=== PATIENT | male | born 1965 ===

== ENCOUNTER 2018-03-08 16:01 | Inpatient (IN) | payer SELFPAY ==
[2018-03-08] MEDS ORDERED: Sodium Chloride 0.9% 1,000 ML IV STA ×2 (16:32→18:10)
[2018-03-08] MEDS ORDERED: Insulin Regular 100 units/ml SC STA (16:33)
--- NOTE | 2018-03-08 16:39 | ED PDOC ---
HPI: Abdomen Time Seen by Provider: 03/08/18 16:26 Chief Complaint (Nursing): Abdominal Pain Chief Complaint (Provider): abdominal pain History Per: Patient History/Exam Limitations: no limitations Onset/Duration Of Symptoms: Days (x3) Location Of Pain/Discomfort: LLQ Associated Symptoms: Vomiting. denies: Fever, Chills, Diarrhea, Urinary Symptoms Additional Complaint(s): Travis Loya is a 53 year old male, with a past medical history of diabetes, RBKA and amputation of left toes, who presents to the emergency department complaining of LLQ pain onset for x3 days associated with x1 episode of vomiting. Patient is noncompliant with diabetic medications. He denies any fever, chills or urinary symptoms. No further medical complaints. PMD: None provided. Past Medical History Reviewed: Historical Data, Nursing Documentation, Vital Signs Vital Signs: Last Vital Signs Temp 98.6 F 03/08/18 16:06 Pulse 98 H 03/08/18 16:06 Resp 18 03/08/18 16:06 BP 125/92 H 03/08/18 16:06 Pulse Ox 97 03/08/18 16:06 - Medical History PMH: Asthma, Diabetes - Surgical History Other surgeries: RBKA, left toes amputation - Family History Family History: States: Unknown Family Hx - Social History Current smoker - smoking cessation education provided: Yes (Heavy smoker >10 cigarettes daily) Alcohol: Social - Allergies Allergies/Adverse Reactions: Allergies Allergy/AdvReac Type Severity Reaction Status Date / Time FISH Allergy RASH Verified 03/08/18 16:06 hazelnut Allergy RASH Verified 03/08/18 16:06 Review of Systems ROS Statement: Except As Marked, All Systems Reviewed And Found Negative Constitutional: Negative for: Fever, Chills Gastrointestinal: Positive for: Vomiting (x1), Abdominal Pain (LLQ). Negative for: Diarrhea Genitourinary Male: Negative for: Dysuria, Frequency, Hematuria Physical Exam - Reviewed Nursing Documentation Reviewed: Yes Vital Signs Reviewed: Yes - Physical Exam Appears: Positive for: No Acute Distress Head Exam: Positive for: ATRAUMATIC, NORMOCEPHALIC Skin: Positive for: Normal Color, Warm, Dry Eye Exam: Positive for: Normal appearance, EOMI, PERRL Neck: Positive for: Painless ROM, Supple Cardiovascular/Chest: Positive for: Regular Rate, Rhythm. Negative for: Murmur Respiratory: Positive for: Normal Breath Sounds. Negative for: Respiratory Distress Gastrointestinal/Abdominal: Positive for: Soft, Tenderness (mild LLQ). Negative for: Guarding, Rebound Back: Positive for: Normal Inspection. Negative for: L CVA Tenderness, R CVA Tenderness Extremity: Positive for: Other (RBKA and amputation of left toe) Neurologic/Psych: Positive for: Alert, Oriented - Laboratory Results Result Diagrams: 03/08/18 16:51 03/08/18 16:51 - ECG O2 Sat by Pulse Oximetry: 97 (RA) Pulse Ox Interpretation: Normal - Progress Re-evaluation Time: 18:14 Condition: Re-examined - Critical Care Total Time (In Min): 30 Documented Critical Care: Time excludes all time spent performint seperately billable procedures Medical Decision Making Medical Decision Making: Time: 16:26 Initial Plan: --Abd & Pelvis IV Contrast --CMP --Urine dipstick --CBC w/ differential --HumuLIN R 6 units --Sodium Chloride 1,000 ml IV 200 mls/hr --Reevaluation Calculated osmolarity 312 Will tx with fluids and Insulin drip and admit to ICU Scribe Attestation: Documented by Damien Rodriguez, acting as a scribe for Tex Mack MD. Provider Scribe Attestation: All medical record entries made by the Scribe were at my direction and personally dictated by me. I have reviewed the chart and agree that the record accurately reflects my personal performance of the history, physical exam, medical decision making, and the department course for this patient. I have also personally directed, reviewed, and agree with the discharge instructions and disposition. Disposition - Clinical Impression Clinical Impression: Hyperosmolar non-ketotic state in patient with type 2 diabetes mellitus - Patient ED Disposition Is Patient to be Admitted: Yes - Disposition Disposition Time: 18:15 Condition: GUARDED Forms: [employer] (Slovenian) - Pt Status Changed To: Hospital Disposition Of: Inpatient - Admit Certification Admit to Inpatient:: After my assessment, the patient will require hospitalization for at least two midnights. This is because of the severity of symptoms shown, intensity of services needed, and/or the medical risk in this patient being treated as an outpatient. - POA Present On Arrival: None
[2018-03-08] MEDS ORDERED: Insulin Regular 100 units/ml ONE (16:50)
[2018-03-08 16:56] LABS: BASO % 0.5 % (0.0-2.0); EOS # 0.1 K/uL (0.0-0.7); EOS % 0.8 % (0.0-4.0); HEMOGLOBIN 13.3 g/dL (12.0-18.0); LYMPH # 1.5 K/uL (1.0-4.3); LYMPH % 21.9 % (20.0-40.0); MEAN CELL VOLUME 89.9 fl (80.0-94.0); MEAN CORPUSCULAR HEMOGLOBIN 29.5 pg (27.0-31.0); MEAN CORPUSCULAR HGB CONC 32.9 g/dL (33.0-37.0); MEAN PLATELET VOLUME 8.3 fl (7.2-11.7); MONO # 0.5 K/uL (0.0-0.8); MONO % 7.3 % (0.0-10.0); NEUT # 4.6 K/uL (1.8-7.0); NEUT % 69.5 % (50.0-75.0); RBC 4.5 Mil/uL (4.40-5.90); RED CELL DISTRIBUTION WIDTH 12.7 % (11.5-14.5); WHITE BLOOD COUNT 6.7 K/uL (4.8-10.8)
[2018-03-08 17:14] LABS: ALB/GLOB RATIO 1.1 (1.0-2.1); ALBUMIN 4.2 g/dL (3.5-5.0); ALT/SGPT 45 U/L (21-72); AST/SGOT 42 U/L (17-59); BLOOD UREA NITROGEN 23 mg/dl (9-20); CALCIUM 9.2 mg/dL (8.4-10.2); GFR NON-AFRICAN AMERICAN > 60
[2018-03-08] MEDS ORDERED: Glucagon Recombinant 1 mg Inj IM PRN (18:09)
[2018-03-08] MEDS ORDERED: Dextrose 50% SYRINGE Inj (50 ml) IV PRN (18:09)
--- NOTE | 2018-03-08 18:34 | CT ---
Date of service: 03/08/2018 PROCEDURE: CT Abdomen and Pelvis without intravenous contrast HISTORY: Rule out kidney stone. COMPARISON: None. TECHNIQUE: Technique. Contrast dose: Radiation dose: Total exam DLP = mGy-cm. This CT exam was performed using one or more of the following dose reduction techniques: Automated exposure control, adjustment of the mA and/or kV according to patient size, and/or use of iterative reconstruction technique. FINDINGS: LOWER THORAX: Heart size is within range of normal. No significant pericardial effusion. There is a small hiatal hernia with wall thickening of the distal esophagus likely due to protrusion of gastric mucosa. Possibility of esophagitis not excluded. Linear atelectasis/scarring changes middle lobe and to a lesser degree lingular regions. No effusion or basilar pneumothorax.. Minimal changes of left-sided gynecomastia. LIVER: Liver is upper limits of normal-borderline enlarged measuring nearly 19 cm in CC dimension. GALLBLADDER AND BILE DUCTS: Unremarkable. PANCREAS: Unre the visualized portions of the pancreas appear slightly atrophic and fatty replaced. No obvious pancreatic mass or collection. SPLEEN: Unremarkable. ADRENALS: The slightly nodular appearing left adrenal gland.. KIDNEYS AND URETERS: Kidneys demonstrate relatively symmetric size. No definitive evidence of nephrolithiasis. No hydronephrosis. No renal masses or collections.. VASCULATURE: Unremarkable. No aortic aneurysm. BOWEL: The evaluation of the bowel slightly limited due to the lack of oral contrast material. The stomach is partially distended with food debris liquid and air. Visualized loops of small bowel exhibit normal contour and caliber. No evidence of acute mechanical small bowel obstruction. Moderately large amount of stool seen within the cecum at ascending transverse and descending colon suggesting mild fecal retention/constipation. No definitive mural wall thickening. APPENDIX: Normal-appearing appendix. PERITONEUM: Unremarkable. No free fluid. No free air. LYMPH NODES: Unremarkable. No enlarged lymph nodes. BLADDER: Urinary bladder is physiologically distended. No evidence of intraluminal urinary bladder calculi. REPRODUCTIVE: Prostate gland measures approximately 3.74 cm in transverse dimension. BONES: Minor multilevel degenerative spondylosis of the lower thoracic and lumbar spine. OTHER FINDINGS: None. IMPRESSION: No evidence of nephrolithiasis or hydronephrosis. Liver is upper limits of normal/borderline enlarged. Spleen appears upper limits of normal in size as well. Slightly nodular appearing left adrenal gland. Small hiatal hernia with wall thickening of distal esophagus likely due to protrusion gastric mucosa however esophagitis not excluded. Mild linear atelectasis/scarring changes seen in the middle lobe and to a lesser degree lingular regions.
[2018-03-08 19:08] LABS: URINE BILIRUBIN NEGATIVE (NEGATIVE); URINE BLOOD NEGATIVE (NEGATIVE); URINE CLARITY CLEAR (Clear); URINE COLOR STRAW (YELLOW); URINE GLUCOSE (UA) >=500 mg/dL (Normal); URINE LEUKOCYTE ESTERASE NEG Leu/uL (Negative); URINE PROTEIN NEGATIVE (NEGATIVE); URINE UROBILINOGEN 0.2-1.0 mg/dL (0.2-1.0)
[2018-03-08 19:10] LABS: AMYLASE 105 U/L (30-110); LIPASE 511 U/L (23-300)
[2018-03-08] MEDS: Dextrose 5%/0.45% NS 1,000 ML IV SCH ×2 (23:15→23:31)
--- NOTE | 2018-03-09 00:56 | CON ---
DATE: 03/08/2018 CRITICAL CARE CONSULTATION The patient in ER, being admitted to ICU. REASON FOR CONSULTATION: A 53-year-old male with type 2 diabetes mellitus, peripheral neuropathy, retinopathy, asthma, presenting with left lower quadrant pain, noted to have hyperglycemia, for further evaluation and management. History is obtained after discussion with the patient, discussed with ER physician, events in the ER noted. HISTORY OF PRESENT ILLNESS: Mr. 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 The patient presented to emergency room complaining of left lower quadrant pain associated with nausea and vomiting, but no diarrhea, dysuria, or hematuria. No fever, no chills, no cough, no chest pain, no palpitation. No motor deficit. In ER, the patient's vital signs showed a temperature 98.6, heart rate 98, respiratory rate 18, blood pressure 125/92, pulse oximetry 97%. PAST MEDICAL HISTORY: As noted for diabetes and asthma. ALLERGIES: TO FISH AND HAZELNUT. PAST SURGICAL HISTORY: Left toe amputation, right below-knee amputation. PHYSICAL EXAMINATION: GENERAL: A middle-aged male, oriented to name, place, and time. No distress. VITAL SIGNS: As noted above. HEAD, EYES, EARS, NOSE, ANS THROAT: Pupils are reactive. Conjunctivae pink. Sclerae are white. Reduced vision. NECK: Supple. Trachea is central. HEART: Rhythm regular. S1, S2 normal. No audible murmur. CHEST: Bilateral breath sounds. Clear to auscultation. ABDOMEN: Bowel sounds present. Soft. Liver and spleen not palpable. Bladder not distended. EXTREMITIES: Right below-knee amputation. Subtarsal amputation left leg. NEURO EXAMINATION: Reduced sensation in both lower extremities. No motor deficit. No cranial nerve deficit. Deep tendon reflex 2+ bilaterally. LABORATORY DATA: WBC 6.7, hemoglobin 13.3, hematocrit 40.5, platelet count 275. SMA-7: Sodium 129, potassium 4.7, chloride 90, CO2 25, blood urea nitrogen 22, creatinine 1.1, glucose 818. Chest x-ray to be reviewed. CT of the abdomen: Base of the lung with no infiltrates. Abdominal and pelvic CT, official report pending. IMPRESSION: A 53-year-old male with uncontrolled hyperglycemia, normal white count, normal hemoglobin. Anion gap, near normal. AST 42, ALT 45, alkaline phosphatase 148, total protein 8.2, albumin 4.2. Microbiology pending. 1. A 53-year-old male with uncontrolled hyperglycemia secondary to noncompliance with medications. 2. Abdominal pain, no clear etiology. We will look at official reading. 3. Urinalysis pending. PLAN: 1. IV hydration with normal saline. 2. Insulin drip, to reduce sugar to 250, and then to resume his usual medications at home that includes Tresiba 20 units at night and insulin Aspart 10 units subcu three times a day with meals. Ricky Rodrigues MD
[2018-03-09 05:53] LABS: BASO % 0.6 % (0.0-2.0); EOS # 0.1 K/uL (0.0-0.7); EOS % 2.3 % (0.0-4.0); HEMOGLOBIN 11.8 g/dL (12.0-18.0); LYMPH # 2.3 K/uL (1.0-4.3); LYMPH % 36.4 % (20.0-40.0); MEAN CELL VOLUME 87.3 fl (80.0-94.0); MEAN CORPUSCULAR HEMOGLOBIN 29.9 pg (27.0-31.0); MEAN CORPUSCULAR HGB CONC 34.3 g/dL (33.0-37.0); MEAN PLATELET VOLUME 7.9 fl (7.2-11.7); MONO # 0.5 K/uL (0.0-0.8); MONO % 8.6 % (0.0-10.0); NEUT # 3.3 K/uL (1.8-7.0); NEUT % 52.1 % (50.0-75.0); RBC 3.96 Mil/uL (4.40-5.90); RED CELL DISTRIBUTION WIDTH 12.3 % (11.5-14.5); WHITE BLOOD COUNT 6.3 K/uL (4.8-10.8)
[2018-03-09] MEDS ORDERED: Pneumococcal 23-Valent Vaccine IM ONE (06:00)
[2018-03-09 06:48] LABS: ALB/GLOB RATIO 0.9 (1.0-2.1); ALBUMIN 3.2 g/dL (3.5-5.0); ALT/SGPT 37 U/L (21-72); AST/SGOT 44 U/L (17-59); BLOOD UREA NITROGEN 17 mg/dl (9-20); CALCIUM 8.4 mg/dL (8.4-10.2); GFR NON-AFRICAN AMERICAN > 60
[2018-03-09] MEDS ORDERED: Insulin Lispro (humaLOG) 100 Units/ml Inj SC SCH (07:30)
--- NOTE | 2018-03-09 07:55 | CP.PCM.HP ---
<Sultan Kaushal - Last Filed: 03/10/18 09:38> History of Present Illness - History of Present Illness History of Present Illness: 53 y/o male with a past medical history of DMII, HTN, RBKA and amputation of left toes presented to [facility] ED on 03/08/18 with c/o LLQ pain onset for x3 days associated with x1 episode of vomiting. Denies any chest pain, dyspnea, headache, dizziness, fever, chills or focal weakness. Patient reports he did not take his DMII medications for one month due to not having insurance. Denies any other complaints. ROS: all 12 systems reviewed and negative except as mentioned in HPI Pmhx: DMII, HTN, asthma PSHX: right BKA and left toes amputation Medications: reviewed Allergies: NKDA Family hx: unremarkable Social hx: smokes 3-4 cigarettes on weekend and drinks alcohol. Denies recreational drug uses Present on Admission - Present on Admission Any Indicators Present on Admission: Yes History of Uncontrolled Diabetes: Yes Review of Systems - Review of Systems All systems: reviewed and no additional remarkable complaints except Past Patient History - Past Social History Smoking Status: Light Smoker < 10 Cigarettes Daily - PULMONARY Hx Asthma: Yes - ENDOCRINE/METABOLIC Hx Endocrine Disorders: Yes Hx Diabetes Mellitus Type 2: Yes - MUSCULOSKELETAL/RHEUMATOLOGICAL Hx Falls: No - PSYCHIATRIC Hx Substance Use: No - SURGICAL HISTORY Other/Comment: RBKA, left toes amputation - ANESTHESIA Hx Anesthesia: Yes Hx Anesthesia Reactions: No Meds Home Medications: Home Medication List Medication Instructions Recorded Confirmed Type Atorvastatin [Lipitor] 20 mg PO DAILY #14 tab 03/10/18 Rx Pantoprazole [Protonix] 40 mg PO DAILY #30 ect 03/10/18 Rx RX: Insulin Aspart, Recombinant 10 unit SC ACTID #5 unit 03/10/18 Rx [Novolog] RX: Insulin Degludec [Tresiba 20 unit SC HS #5 insuln.pen 03/10/18 Rx Flextouch U-100] RX: Losartan [Cozaar] 50 mg PO DAILY #30 tab 03/10/18 Rx Allergies/Adverse Reactions: Allergies Allergy/AdvReac Type Severity Reaction Status Date / Time FISH Allergy RASH Verified 03/08/18 16:06 hazelnut Allergy RASH Verified 03/08/18 16:06 Physical Exam - Constitutional Appears: Non-toxic, No Acute Distress - Head Exam Head Exam: ATRAUMATIC, NORMOCEPHALIC - Eye Exam Eye Exam: EOMI, Normal appearance - ENT Exam ENT Exam: Mucous Membranes Moist - Respiratory Exam Respiratory Exam: Clear to Auscultation Bilateral, NORMAL BREATHING PATTERN. absent: Rhonchi, Wheezes - Cardiovascular Exam Cardiovascular Exam: REGULAR RHYTHM, RRR, +S1 - GI/Abdominal Exam GI & Abdominal Exam: Normal Bowel Sounds, Soft Additional comments: Mild tenderness at LLQ. No guarding or rigidity. - Extremities Exam Additional comments: Right BKA and amputations of left toe - Neurological Exam Neurological exam: Alert, Oriented x3 - Psychiatric Exam Psychiatric exam: Normal Affect, Normal Mood - Skin Skin Exam: Normal Color, Warm Results - Vital Signs Recent Vital Signs: Last Vital Signs Temp 98.1 F 03/09/18 00:00 Pulse 82 03/09/18 06:00 Resp 10 L 03/09/18 06:00 BP 151/91 H 03/09/18 06:00 Pulse Ox 99 03/09/18 06:00 - Labs Result Diagrams: 03/10/18 04:20 03/10/18 04:20 Labs: Laboratory Results - last 24 hr 03/08/18 03/08/18 03/08/18 16:07 16:16 16:51 WBC 6.7 RBC 4.50 Hgb 13.3 Hct 40.5 MCV 89.9 MCH 29.5 MCHC 32.9 L RDW 12.7 Plt Count 275 MPV 8.3 Neut % (Auto) 69.5 Lymph % (Auto) 21.9 [place] % (Auto) 7.3 Eos % (Auto) 0.8 Baso % (Auto) 0.5 Neut # (Auto) 4.6 Lymph # (Auto) 1.5 [place] # (Auto) 0.5 Eos # (Auto) 0.1 Baso # (Auto) 0.0 Sodium Potassium Chloride Carbon Dioxide Anion Gap BUN Creatinine Est GFR ( Amer) Est GFR (Non-Af Amer) POC Glucose (mg/dL) > 500 H* > 500 H* Random Glucose Serum Osmolality Calcium Total Bilirubin AST ALT Alkaline Phosphatase Total Protein Albumin Globulin Albumin/Globulin Ratio Amylase Lipase Urine Color Urine Clarity Urine pH Ur Specific [place] Urine Protein Urine Glucose (UA) Urine Ketones Urine Blood Urine Nitrate Urine Bilirubin Urine Urobilinogen Ur Leukocyte Esterase Urine RBC (Auto) Urine Microscopic WBC 03/08/18 03/08/18 03/08/18 16:51 18:00 18:44 WBC RBC Hgb Hct MCV MCH MCHC RDW Plt Count MPV Neut % (Auto) Lymph % (Auto) [place] % (Auto) Eos % (Auto) Baso % (Auto) Neut # (Auto) Lymph # (Auto) [place] # (Auto) Eos # (Auto) Baso # (Auto) Sodium 129 L Potassium 4.7 Chloride 90 L Carbon Dioxide 25 Anion Gap 19 BUN 23 H Creatinine 1.1 Est GFR ( Amer) > 60 Est GFR (Non-Af Amer) > 60 POC Glucose (mg/dL) > 500 H* Random Glucose 818 H* Serum Osmolality 304 H Calcium 9.2 Total Bilirubin 0.6 AST 42 ALT 45 Alkaline Phosphatase 148 H Total Protein 8.2 Albumin 4.2 Globulin 4.0 H Albumin/Globulin Ratio 1.1 Amylase Lipase Urine Color Urine Clarity Urine pH Ur Specific [place] Urine Protein Urine Glucose (UA) Urine Ketones Urine Blood Urine Nitrate Urine Bilirubin Urine Urobilinogen Ur Leukocyte Esterase Urine RBC (Auto) Urine Microscopic WBC 03/08/18 03/08/18 03/08/18 19:02 19:02 19:46 WBC RBC Hgb Hct MCV MCH MCHC RDW Plt Count MPV Neut % (Auto) Lymph % (Auto) [place] % (Auto) Eos % (Auto) Baso % (Auto) Neut # (Auto) Lymph # (Auto) [place] # (Auto) Eos # (Auto) Baso # (Auto) Sodium Potassium Chloride Carbon Dioxide Anion Gap BUN Creatinine Est GFR ( Amer) Est GFR (Non-Af Amer) POC Glucose (mg/dL) 340 H Random Glucose Serum Osmolality Calcium Total Bilirubin AST ALT Alkaline Phosphatase Total Protein Albumin Globulin Albumin/Globulin Ratio Amylase 105 Lipase 511 H Urine Color Straw Urine Clarity Clear Urine pH 6.0 Ur Specific [place] 1.028 Urine Protein Negative Urine Glucose (UA) >=500 Urine Ketones Trace Urine Blood Negative Urine Nitrate Negative Urine Bilirubin Negative Urine Urobilinogen 0.2-1.0 Ur Leukocyte Esterase Neg Urine RBC (Auto) 2 Urine Microscopic WBC 1 03/08/18 03/08/18 03/08/18 20:49 22:08 23:07 WBC RBC Hgb Hct MCV MCH MCHC RDW Plt Count MPV Neut % (Auto) Lymph % (Auto) [place] % (Auto) Eos % (Auto) Baso % (Auto) Neut # (Auto) Lymph # (Auto) [place] # (Auto) Eos # (Auto) Baso # (Auto) Sodium Potassium Chloride Carbon Dioxide Anion Gap BUN Creatinine Est GFR ( Amer) Est GFR (Non-Af Amer) POC Glucose (mg/dL) 167 H 73 74 Random Glucose Serum Osmolality Calcium Total Bilirubin AST ALT Alkaline Phosphatase Total Protein Albumin Globulin Albumin/Globulin Ratio Amylase Lipase Urine Color Urine Clarity Urine pH Ur Specific [place] Urine Protein Urine Glucose (UA) Urine Ketones Urine Blood Urine Nitrate Urine Bilirubin Urine Urobilinogen Ur Leukocyte Esterase Urine RBC (Auto) Urine Microscopic WBC 03/09/18 03/09/18 03/09/18 00:04 01:04 02:04 WBC RBC Hgb Hct MCV MCH MCHC RDW Plt Count MPV Neut % (Auto) Lymph % (Auto) [place] % (Auto) Eos % (Auto) Baso % (Auto) Neut # (Auto) Lymph # (Auto) [place] # (Auto) Eos # (Auto) Baso # (Auto) Sodium Potassium Chloride Carbon Dioxide Anion Gap BUN Creatinine Est GFR ( Amer) Est GFR (Non-Af Amer) POC Glucose (mg/dL) 95 126 H 124 H Random Glucose Serum Osmolality Calcium Total Bilirubin AST ALT Alkaline Phosphatase Total Protein Albumin Globulin Albumin/Globulin Ratio Amylase Lipase Urine Color Urine Clarity Urine pH Ur Specific [place] Urine Protein Urine Glucose (UA) Urine Ketones Urine Blood Urine Nitrate Urine Bilirubin Urine Urobilinogen Ur Leukocyte Esterase Urine RBC (Auto) Urine Microscopic WBC 03/09/18 03/09/18 03/09/18 04:10 04:20 04:20 WBC 6.3 RBC 3.96 L Hgb 11.8 L Hct 34.6 L MCV 87.3 D MCH 29.9 MCHC 34.3 RDW 12.3 Plt Count 226 MPV 7.9 Neut % (Auto) 52.1 Lymph % (Auto) 36.4 [place] % (Auto) 8.6 Eos % (Auto) 2.3 Baso % (Auto) 0.6 Neut # (Auto) 3.3 Lymph # (Auto) 2.3 [place] # (Auto) 0.5 Eos # (Auto) 0.1 Baso # (Auto) 0.0 Sodium 136 Potassium 3.7 Chloride 103 Carbon Dioxide 26 Anion Gap 11 BUN 17 Creatinine 0.9 Est GFR ( Amer) > 60 Est GFR (Non-Af Amer) > 60 POC Glucose (mg/dL) 166 H Random Glucose 180 H Serum Osmolality Calcium 8.4 Total Bilirubin 0.5 AST 44 ALT 37 Alkaline Phosphatase 103 Total Protein 6.7 Albumin 3.2 L D Globulin 3.5 Albumin/Globulin Ratio 0.9 L Amylase Lipase Urine Color Urine Clarity Urine pH Ur Specific [place] Urine Protein Urine Glucose (UA) Urine Ketones Urine Blood Urine Nitrate Urine Bilirubin Urine Urobilinogen Ur Leukocyte Esterase Urine RBC (Auto) Urine Microscopic WBC Assessment & Plan - Assessment and Plan (Free Text) Assessment: Assessment: 53 y/o male with a past medical history of DMII, HTN, RBKA and amputation of left toes presented to [facility] ED on 03/08/18 with c/o LLQ pain onset for x3 days associated with x1 episode of vomiting. Patients glucose in ED was 818. Reports he did not take insulin for 1 month. Patient is admitted to ICU for hyperosmolar hyperglycemic state and abdominal pain. Plan: Hyperosmolar hyperglycemic state of DMII Admit to ICU ICU consult appreciated IV fluids with NS Insulin drip Monitor electrolytes Neuro check A1c 14.2 AM labs Abdominal pain: CT A/P shows hiatal hernia Start protonix 40 mg po daily Patient seen and examined with Dr. Snyder this morning Sultan Easley, [id number] <Fernando Snyder - Last Filed: 03/10/18 20:33> Results - Vital Signs Recent Vital Signs: Last Vital Signs Temp 98.7 F 03/10/18 08:00 Pulse 85 03/10/18 10:16 Resp 11 L 03/10/18 08:00 BP 137/90 03/10/18 10:16 Pulse Ox 95 03/10/18 08:00 - Labs Result Diagrams: 03/10/18 04:20 03/10/18 04:20 Labs: Laboratory Results - last 24 hr 03/09/18 03/09/18 03/09/18 05:57 07:50 09:10 WBC RBC Hgb Hct MCV MCH MCHC RDW Plt Count Sodium Potassium Chloride Carbon Dioxide Anion Gap BUN Creatinine Est GFR ( Amer) Est GFR (Non-Af Amer) POC Glucose (mg/dL) 208 H 233 H 307 H Random Glucose Calcium Phosphorus Magnesium Total Bilirubin AST ALT Alkaline Phosphatase Total Protein Albumin Globulin Albumin/Globulin Ratio 03/09/18 03/09/18 03/09/18 10:31 12:12 16:49 WBC RBC Hgb Hct MCV MCH MCHC RDW Plt Count Sodium Potassium Chloride Carbon Dioxide Anion Gap BUN Creatinine Est GFR ( Amer) Est GFR (Non-Af Amer) POC Glucose (mg/dL) 348 H 315 H 195 H Random Glucose Calcium Phosphorus Magnesium Total Bilirubin AST ALT Alkaline Phosphatase Total Protein Albumin Globulin Albumin/Globulin Ratio 03/09/18 03/10/18 03/10/18 20:13 00:12 04:20 WBC 6.4 RBC 4.45 Hgb 13.1 Hct 38.9 MCV 87.4 MCH 29.4 MCHC 33.6 RDW 12.9 Plt Count 258 Sodium Potassium Chloride Carbon Dioxide Anion Gap BUN Creatinine Est GFR ( Amer) Est GFR (Non-Af Amer) POC Glucose (mg/dL) 230 H 228 H Random Glucose Calcium Phosphorus Magnesium Total Bilirubin AST ALT Alkaline Phosphatase Total Protein Albumin Globulin Albumin/Globulin Ratio 03/10/18 04:20 WBC RBC Hgb Hct MCV MCH MCHC RDW Plt Count Sodium 137 Potassium 4.4 Chloride 103 Carbon Dioxide 25 Anion Gap 13 BUN 11 Creatinine 0.9 Est GFR ( Amer) > 60 Est GFR (Non-Af Amer) > 60 POC Glucose (mg/dL) Random Glucose 230 H Calcium 8.7 Phosphorus 3.3 Magnesium 2.0 Total Bilirubin 0.4 AST 47 ALT 42 Alkaline Phosphatase 107 Total Protein 7.2 Albumin 3.5 Globulin 3.7 Albumin/Globulin Ratio 0.9 L Assessment & Plan - Assessment and Plan (Free Text) Assessment: Patient was personally seen and examined by me in rounds with residents. Available labs and diagnostic data reviewed. Case, Patient's condition and management plan discussed with residents in rounds. Agree with resident's progress note. Plan: As ordered.
[2018-03-09] MEDS: Dextrose 5%/0.45% NS 1,000 ML IV SCH (08:51)
[2018-03-09] MEDS: Sodium Chloride 0.9% 1,000 ML IV SCH ×2 (10:38→23:30)
[2018-03-09] MEDS: Insulin Lispro (humaLOG) 100 Units/ml Inj SC SCH ×6 (10:39→21:43)
--- NOTE | 2018-03-09 12:20 | RAD ---
Date of service: 03/08/2018 PROCEDURE: CHEST RADIOGRAPH, 1 VIEW HISTORY: pneumonia COMPARISON: None available. FINDINGS: LUNGS: Clear. PLEURA: No pneumothorax or pleural fluid seen. CARDIOVASCULAR: Normal. OSSEOUS STRUCTURES: No significant abnormalities. VISUALIZED UPPER ABDOMEN: Normal. OTHER FINDINGS: None. IMPRESSION: No active disease.
--- NOTE | 2018-03-09 12:24 | CP.CCUPN ---
CCU Subjective - Physician Review Events Since Last Encounter (Free Text): 03/09/18 12:38 The patient was seen and examined at the bedside, medical records reviewed, and management issues were discussed and formulated with the house staff. Events reviewed. 53 Years old Male with PMHx of Controlled sthma and Diabetes S/P R BKA and left toes amputation Who presents to the emergency department 03/08 complaining of LLQ pain onset for x3 days associated with x1 episode of vomiting. Patient is noncompliant with diabetic medications. He denies any fever, chills or urinary symptoms. Patient received 2L of IV fluids, started on insulin drip and was admitted to the ICU for Hyperosmolar hyperglycemic state due to non-Compliance with medical regiment. He is doing better today Awake, oriented x 3 Comfortable, NAD Afebrile, NSR on the monitor + Abdominal pain, No chest pain or SOB Off insulin drip IV Fluids switched D5 0.45% NS to 0.9% NS at 80 cc/H Resumed home insulin (long acting and pre-mail) today but at half of dose Also Pt on sliding scale, MEDIUM Dose, frequency changed to every 4 hours. Started PO diet, tolerating CCU Objective - Vital Signs / Intake & Output Intake and Output (Last 8hrs): Intake & Output 03/08/18 03/09/18 03/09/18 22:59 06:59 14:59 Intake Total 2002 Balance 2002 Weight 191 lb 175 lb 14.4 oz Intake: IV 2002 Intravenous #1 1000 Intravenous #2 1000 - Physical Exam Head: Positive for: Atraumatic, Normocephalic Pupils: Positive for: PERRL Extroacular Muscles: Positive for: EOMI Conjunctiva: Positive for: Normal Ears: Positive for: Normal Mouth: Positive for: Moist Mucous Membranes Pharnyx: Positive for: Normal Nose (Internal): Positive for: Normal Inspection Neck: Positive for: Normal Range of Motion, Trachea Midline. Negative for: Meningeal Signs, MIDLINE TENDERNESS, Paraspinal Tenderness, JVD, Lymphadenopathy, Bruit, Other Respiratory/Chest: Positive for: Clear to Auscultation, Good Air Exchange. Negative for: Respiratory Distress, Accessory Muscle Use, Decreased Breath Sounds, Rales, Retracting Cardiovascular: Positive for: Regular Rate and Rhythm, Normal S1, S2, Peripheal Pulses Present. Negative for: Murmurs, Irregular Rhythm Back: Negative for: CVA Tenderness Neurological: Positive for: GCS=15, CN II-XII Intact, Speech Normal, Motor Func Grossly Intact, Normal Sensory Function Psychiatric: Positive for: Alert, Oriented x 3 - Medications Active Medications: Active Medications Generic Name Dose Route Start Last Admin Trade Name Freq PRN Reason Stop Dose Admin Dextrose 0 ml 03/08/18 18:09 Dextrose 50% Inj IV STAT PRN Hypoglycemia Protocol Protocol Dextrose 0 gm 03/08/18 18:09 Glutose 15 PO ONCE PRN Hypoglycemia Protocol Protocol Glucagon 0 mg 03/08/18 18:09 Glucagen Diagnostic Kit IM STAT PRN Hypoglycemia Protocol Protocol Sodium Chloride 1,000 mls @ 80 mls/hr 03/09/18 10:30 03/09/18 10:38 Sodium Chloride 0.9% IV 03/10/18 10:25 80 mls/hr .[id number] GET Administration Insulin Detemir 10 units 03/09/18 22:00 Levemir SC HS GTE Insulin Human Lispro 5 units 03/09/18 11:30 Humalog SC ACTID GET Insulin Human Lispro 0 units 03/09/18 13:00 03/09/18 10:39 Humalog SC 6 units Q4 GET Administration Protocol Morphine Sulfate 1 mg 03/08/18 21:48 03/08/18 21:57 Morphine IVP 1 mg Q4 PRN Administration Pain, moderate (4-7) Pantoprazole Sodium 40 mg 03/09/18 09:00 03/09/18 08:25 Protonix Inj IVP 40 mg DAILY GET Administration - Patient Studies Lab Studies: Lab Studies 03/09/18 03/09/18 03/09/18 Range/Units 07:00 06:55 04:20 WBC (4.8-10.8) K/uL RBC (4.40-5.90) Mil/uL Hgb (12.0-18.0) g/dL Hct (35.0-51.0) % MCV (80.0-94.0) fl MCH (27.0-31.0) pg MCHC (33.0-37.0) g/dL RDW (11.5-14.5) % Plt Count (130-400) K/uL MPV (7.2-11.7) fl Neut % (Auto) (50.0-75.0) % Lymph % (Auto) (20.0-40.0) % Osborne % (Auto) (0.0-10.0) % Eos % (Auto) (0.0-4.0) % Baso % (Auto) (0.0-2.0) % Neut # (Auto) (1.8-7.0) K/uL Lymph # (Auto) (1.0-4.3) K/uL Osborne # (Auto) (0.0-0.8) K/uL Eos # (Auto) (0.0-0.7) K/uL Baso # (Auto) (0.0-0.2) K/uL Sodium 136 (132-148) mmol/l Potassium 3.7 (3.6-5.0) MMOL/L Chloride 103 (98-107) mmol/L Carbon Dioxide 26 (22-30) mmol/L Anion Gap 11 (10-20) BUN 17 (9-20) mg/dl Creatinine 0.9 (0.8-1.5) mg/dl Est GFR ( Amer) > 60 Est GFR (Non-Af Amer) > 60 POC Glucose (mg/dL) (65-110) mg/dL Random Glucose 180 H (75-110) mg/dL Hemoglobin A1c 14.2 H (4.2-6.5) % Serum Osmolality (272-300) mosm/kg Calcium 8.4 (8.4-10.2) mg/dL Total Bilirubin 0.5 (0.2-1.3) mg/dl AST 44 (17-59) U/L ALT 37 (21-72) U/L Alkaline Phosphatase 103 (38-126) U/L Total Protein 6.7 (6.3-8.2) G/DL Albumin 3.2 L D (3.5-5.0) g/dL Globulin 3.5 (2.2-3.9) gm/dL Albumin/Globulin Ratio 0.9 L (1.0-2.1) Amylase (30-110) U/L Lipase (23-300) U/L Vitamin B12 821 (239-931) pg/mL TSH 3rd Generation 1.27 (0.46-4.68) mIU/ML Urine Color (YELLOW) Urine Clarity (Clear) Urine pH (5.0-8.0) Ur Specific Bennett (1.003-1.030) Urine Protein (NEGATIVE) mg/dL Urine Glucose (UA) (Normal) mg/dL Urine Ketones (NEGATIVE) mg/dL Urine Blood (NEGATIVE) Urine Nitrate (NEGATIVE) Urine Bilirubin (NEGATIVE) Urine Urobilinogen (0.2-1.0) mg/dL Ur Leukocyte Esterase (Negative) Keisha/uL Urine RBC (Auto) (0-3) /hpf Urine Microscopic WBC (0-5) /hpf 03/09/18 03/09/18 03/09/18 Range/Units 04:20 04:10 02:04 WBC 6.3 (4.8-10.8) K/uL RBC 3.96 L (4.40-5.90) Mil/uL Hgb 11.8 L (12.0-18.0) g/dL Hct 34.6 L (35.0-51.0) % MCV 87.3 D (80.0-94.0) fl MCH 29.9 (27.0-31.0) pg MCHC 34.3 (33.0-37.0) g/dL RDW 12.3 (11.5-14.5) % Plt Count 226 (130-400) K/uL MPV 7.9 (7.2-11.7) fl Neut % (Auto) 52.1 (50.0-75.0) % Lymph % (Auto) 36.4 (20.0-40.0) % Osborne % (Auto) 8.6 (0.0-10.0) % Eos % (Auto) 2.3 (0.0-4.0) % Baso % (Auto) 0.6 (0.0-2.0) % Neut # (Auto) 3.3 (1.8-7.0) K/uL Lymph # (Auto) 2.3 (1.0-4.3) K/uL Osborne # (Auto) 0.5 (0.0-0.8) K/uL Eos # (Auto) 0.1 (0.0-0.7) K/uL Baso # (Auto) 0.0 (0.0-0.2) K/uL Sodium (132-148) mmol/l Potassium (3.6-5.0) MMOL/L Chloride (98-107) mmol/L Carbon Dioxide (22-30) mmol/L Anion Gap (10-20) BUN (9-20) mg/dl Creatinine (0.8-1.5) mg/dl Est GFR ( Amer) Est GFR (Non-Af Amer) POC Glucose (mg/dL) 166 H 124 H (65-110) mg/dL Random Glucose (75-110) mg/dL Hemoglobin A1c (4.2-6.5) % Serum Osmolality (272-300) mosm/kg Calcium (8.4-10.2) mg/dL Total Bilirubin (0.2-1.3) mg/dl AST (17-59) U/L ALT (21-72) U/L Alkaline Phosphatase (38-126) U/L Total Protein (6.3-8.2) G/DL Albumin (3.5-5.0) g/dL Globulin (2.2-3.9) gm/dL Albumin/Globulin Ratio (1.0-2.1) Amylase (30-110) U/L Lipase (23-300) U/L Vitamin B12 (239-931) pg/mL TSH 3rd Generation (0.46-4.68) mIU/ML Urine Color (YELLOW) Urine Clarity (Clear) Urine pH (5.0-8.0) Ur Specific Bennett (1.003-1.030) Urine Protein (NEGATIVE) mg/dL Urine Glucose (UA) (Normal) mg/dL Urine Ketones (NEGATIVE) mg/dL Urine Blood (NEGATIVE) Urine Nitrate (NEGATIVE) Urine Bilirubin (NEGATIVE) Urine Urobilinogen (0.2-1.0) mg/dL Ur Leukocyte Esterase (Negative) Keisha/uL Urine RBC (Auto) (0-3) /hpf Urine Microscopic WBC (0-5) /hpf 03/09/18 03/09/18 03/08/18 Range/Units 01:04 00:04 23:07 WBC (4.8-10.8) K/uL RBC (4.40-5.90) Mil/uL Hgb (12.0-18.0) g/dL Hct (35.0-51.0) % MCV (80.0-94.0) fl MCH (27.0-31.0) pg MCHC (33.0-37.0) g/dL RDW (11.5-14.5) % Plt Count (130-400) K/uL MPV (7.2-11.7) fl Neut % (Auto) (50.0-75.0) % Lymph % (Auto) (20.0-40.0) % Osborne % (Auto) (0.0-10.0) % Eos % (Auto) (0.0-4.0) % Baso % (Auto) (0.0-2.0) % Neut # (Auto) (1.8-7.0) K/uL Lymph # (Auto) (1.0-4.3) K/uL Osborne # (Auto) (0.0-0.8) K/uL Eos # (Auto) (0.0-0.7) K/uL Baso # (Auto) (0.0-0.2) K/uL Sodium (132-148) mmol/l Potassium (3.6-5.0) MMOL/L Chloride (98-107) mmol/L Carbon Dioxide (22-30) mmol/L Anion Gap (10-20) BUN (9-20) mg/dl Creatinine (0.8-1.5) mg/dl Est GFR ( Amer) Est GFR (Non-Af Amer) POC Glucose (mg/dL) 126 H 95 74 (65-110) mg/dL Random Glucose (75-110) mg/dL Hemoglobin A1c (4.2-6.5) % Serum Osmolality (272-300) mosm/kg Calcium (8.4-10.2) mg/dL Total Bilirubin (0.2-1.3) mg/dl AST (17-59) U/L ALT (21-72) U/L Alkaline Phosphatase (38-126) U/L Total Protein (6.3-8.2) G/DL Albumin (3.5-5.0) g/dL Globulin (2.2-3.9) gm/dL Albumin/Globulin Ratio (1.0-2.1) Amylase (30-110) U/L Lipase (23-300) U/L Vitamin B12 (239-931) pg/mL TSH 3rd Generation (0.46-4.68) mIU/ML Urine Color (YELLOW) Urine Clarity (Clear) Urine pH (5.0-8.0) Ur Specific Bennett (1.003-1.030) Urine Protein (NEGATIVE) mg/dL Urine Glucose (UA) (Normal) mg/dL Urine Ketones (NEGATIVE) mg/dL Urine Blood (NEGATIVE) Urine Nitrate (NEGATIVE) Urine Bilirubin (NEGATIVE) Urine Urobilinogen (0.2-1.0) mg/dL Ur Leukocyte Esterase (Negative) Keisha/uL Urine RBC (Auto) (0-3) /hpf Urine Microscopic WBC (0-5) /hpf 03/08/18 03/08/18 03/08/18 Range/Units 22:08 20:49 19:46 WBC (4.8-10.8) K/uL RBC (4.40-5.90) Mil/uL Hgb (12.0-18.0) g/dL Hct (35.0-51.0) % MCV (80.0-94.0) fl MCH (27.0-31.0) pg MCHC (33.0-37.0) g/dL RDW (11.5-14.5) % Plt Count (130-400) K/uL MPV (7.2-11.7) fl Neut % (Auto) (50.0-75.0) % Lymph % (Auto) (20.0-40.0) % Osborne % (Auto) (0.0-10.0) % Eos % (Auto) (0.0-4.0) % Baso % (Auto) (0.0-2.0) % Neut # (Auto) (1.8-7.0) K/uL Lymph # (Auto) (1.0-4.3) K/uL Osborne # (Auto) (0.0-0.8) K/uL Eos # (Auto) (0.0-0.7) K/uL Baso # (Auto) (0.0-0.2) K/uL Sodium (132-148) mmol/l Potassium (3.6-5.0) MMOL/L Chloride (98-107) mmol/L Carbon Dioxide (22-30) mmol/L Anion Gap (10-20) BUN (9-20) mg/dl Creatinine (0.8-1.5) mg/dl Est GFR ( Amer) Est GFR (Non-Af Amer) POC Glucose (mg/dL) 73 167 H 340 H (65-110) mg/dL Random Glucose (75-110) mg/dL Hemoglobin A1c (4.2-6.5) % Serum Osmolality (272-300) mosm/kg Calcium (8.4-10.2) mg/dL Total Bilirubin (0.2-1.3) mg/dl AST (17-59) U/L ALT (21-72) U/L Alkaline Phosphatase (38-126) U/L Total Protein (6.3-8.2) G/DL Albumin (3.5-5.0) g/dL Globulin (2.2-3.9) gm/dL Albumin/Globulin Ratio (1.0-2.1) Amylase (30-110) U/L Lipase (23-300) U/L Vitamin B12 (239-931) pg/mL TSH 3rd Generation (0.46-4.68) mIU/ML Urine Color (YELLOW) Urine Clarity (Clear) Urine pH (5.0-8.0) Ur Specific Bennett (1.003-1.030) Urine Protein (NEGATIVE) mg/dL Urine Glucose (UA) (Normal) mg/dL Urine Ketones (NEGATIVE) mg/dL Urine Blood (NEGATIVE) Urine Nitrate (NEGATIVE) Urine Bilirubin (NEGATIVE) Urine Urobilinogen (0.2-1.0) mg/dL Ur Leukocyte Esterase (Negative) Keisha/uL Urine RBC (Auto) (0-3) /hpf Urine Microscopic WBC (0-5) /hpf 03/08/18 03/08/18 03/08/18 Range/Units 19:02 19:02 18:44 WBC (4.8-10.8) K/uL RBC (4.40-5.90) Mil/uL Hgb (12.0-18.0) g/dL Hct (35.0-51.0) % MCV (80.0-94.0) fl MCH (27.0-31.0) pg MCHC (33.0-37.0) g/dL RDW (11.5-14.5) % Plt Count (130-400) K/uL MPV (7.2-11.7) fl Neut % (Auto) (50.0-75.0) % Lymph % (Auto) (20.0-40.0) % Osborne % (Auto) (0.0-10.0) % Eos % (Auto) (0.0-4.0) % Baso % (Auto) (0.0-2.0) % Neut # (Auto) (1.8-7.0) K/uL Lymph # (Auto) (1.0-4.3) K/uL Osborne # (Auto) (0.0-0.8) K/uL Eos # (Auto) (0.0-0.7) K/uL Baso # (Auto) (0.0-0.2) K/uL Sodium (132-148) mmol/l Potassium (3.6-5.0) MMOL/L Chloride (98-107) mmol/L Carbon Dioxide (22-30) mmol/L Anion Gap (10-20) BUN (9-20) mg/dl Creatinine (0.8-1.5) mg/dl Est GFR ( Amer) Est GFR (Non-Af Amer) POC Glucose (mg/dL) (65-110) mg/dL Random Glucose (75-110) mg/dL Hemoglobin A1c (4.2-6.5) % Serum Osmolality 304 H (272-300) mosm/kg Calcium (8.4-10.2) mg/dL Total Bilirubin (0.2-1.3) mg/dl AST (17-59) U/L ALT (21-72) U/L Alkaline Phosphatase (38-126) U/L Total Protein (6.3-8.2) G/DL Albumin (3.5-5.0) g/dL Globulin (2.2-3.9) gm/dL Albumin/Globulin Ratio (1.0-2.1) Amylase 105 (30-110) U/L Lipase 511 H (23-300) U/L Vitamin B12 (239-931) pg/mL TSH 3rd Generation (0.46-4.68) mIU/ML Urine Color Straw (YELLOW) Urine Clarity Clear (Clear) Urine pH 6.0 (5.0-8.0) Ur Specific Bennett 1.028 (1.003-1.030) Urine Protein Negative (NEGATIVE) mg/dL Urine Glucose (UA) >=500 (Normal) mg/dL Urine Ketones Trace (NEGATIVE) mg/dL Urine Blood Negative (NEGATIVE) Urine Nitrate Negative (NEGATIVE) Urine Bilirubin Negative (NEGATIVE) Urine Urobilinogen 0.2-1.0 (0.2-1.0) mg/dL Ur Leukocyte Esterase Neg (Negative) Keisha/uL Urine RBC (Auto) 2 (0-3) /hpf Urine Microscopic WBC 1 (0-5) /hpf 03/08/18 03/08/18 03/08/18 Range/Units 18:00 16:51 16:51 WBC 6.7 (4.8-10.8) K/uL RBC 4.50 (4.40-5.90) Mil/uL Hgb 13.3 (12.0-18.0) g/dL Hct 40.5 (35.0-51.0) % MCV 89.9 (80.0-94.0) fl MCH 29.5 (27.0-31.0) pg MCHC 32.9 L (33.0-37.0) g/dL RDW 12.7 (11.5-14.5) % Plt Count 275 (130-400) K/uL MPV 8.3 (7.2-11.7) fl Neut % (Auto) 69.5 (50.0-75.0) % Lymph % (Auto) 21.9 (20.0-40.0) % Osborne % (Auto) 7.3 (0.0-10.0) % Eos % (Auto) 0.8 (0.0-4.0) % Baso % (Auto) 0.5 (0.0-2.0) % Neut # (Auto) 4.6 (1.8-7.0) K/uL Lymph # (Auto) 1.5 (1.0-4.3) K/uL Osborne # (Auto) 0.5 (0.0-0.8) K/uL Eos # (Auto) 0.1 (0.0-0.7) K/uL Baso # (Auto) 0.0 (0.0-0.2) K/uL Sodium 129 L (132-148) mmol/l Potassium 4.7 (3.6-5.0) MMOL/L Chloride 90 L (98-107) mmol/L Carbon Dioxide 25 (22-30) mmol/L Anion Gap 19 (10-20) BUN 23 H (9-20) mg/dl Creatinine 1.1 (0.8-1.5) mg/dl Est GFR ( Amer) > 60 Est GFR (Non-Af Amer) > 60 POC Glucose (mg/dL) > 500 H* (65-110) mg/dL Random Glucose 818 H* (75-110) mg/dL Hemoglobin A1c (4.2-6.5) % Serum Osmolality (272-300) mosm/kg Calcium 9.2 (8.4-10.2) mg/dL Total Bilirubin 0.6 (0.2-1.3) mg/dl AST 42 (17-59) U/L ALT 45 (21-72) U/L Alkaline Phosphatase 148 H (38-126) U/L Total Protein 8.2 (6.3-8.2) G/DL Albumin 4.2 (3.5-5.0) g/dL Globulin 4.0 H (2.2-3.9) gm/dL Albumin/Globulin Ratio 1.1 (1.0-2.1) Amylase (30-110) U/L Lipase (23-300) U/L Vitamin B12 (239-931) pg/mL TSH 3rd Generation (0.46-4.68) mIU/ML Urine Color (YELLOW) Urine Clarity (Clear) Urine pH (5.0-8.0) Ur Specific Bennett (1.003-1.030) Urine Protein (NEGATIVE) mg/dL Urine Glucose (UA) (Normal) mg/dL Urine Ketones (NEGATIVE) mg/dL Urine Blood (NEGATIVE) Urine Nitrate (NEGATIVE) Urine Bilirubin (NEGATIVE) Urine Urobilinogen (0.2-1.0) mg/dL Ur Leukocyte Esterase (Negative) Keisha/uL Urine RBC (Auto) (0-3) /hpf Urine Microscopic WBC (0-5) /hpf 03/08/18 03/08/18 Range/Units 16:16 16:07 WBC (4.8-10.8) K/uL RBC (4.40-5.90) Mil/uL Hgb (12.0-18.0) g/dL Hct (35.0-51.0) % MCV (80.0-94.0) fl MCH (27.0-31.0) pg MCHC (33.0-37.0) g/dL RDW (11.5-14.5) % Plt Count (130-400) K/uL MPV (7.2-11.7) fl Neut % (Auto) (50.0-75.0) % Lymph % (Auto) (20.0-40.0) % Osborne % (Auto) (0.0-10.0) % Eos % (Auto) (0.0-4.0) % Baso % (Auto) (0.0-2.0) % Neut # (Auto) (1.8-7.0) K/uL Lymph # (Auto) (1.0-4.3) K/uL Osborne # (Auto) (0.0-0.8) K/uL Eos # (Auto) (0.0-0.7) K/uL Baso # (Auto) (0.0-0.2) K/uL Sodium (132-148) mmol/l Potassium (3.6-5.0) MMOL/L Chloride (98-107) mmol/L Carbon Dioxide (22-30) mmol/L Anion Gap (10-20) BUN (9-20) mg/dl Creatinine (0.8-1.5) mg/dl Est GFR ( Amer) Est GFR (Non-Af Amer) POC Glucose (mg/dL) > 500 H* > 500 H* (65-110) mg/dL Random Glucose (75-110) mg/dL Hemoglobin A1c (4.2-6.5) % Serum Osmolality (272-300) mosm/kg Calcium (8.4-10.2) mg/dL Total Bilirubin (0.2-1.3) mg/dl AST (17-59) U/L ALT (21-72) U/L Alkaline Phosphatase (38-126) U/L Total Protein (6.3-8.2) G/DL Albumin (3.5-5.0) g/dL Globulin (2.2-3.9) gm/dL Albumin/Globulin Ratio (1.0-2.1) Amylase (30-110) U/L Lipase (23-300) U/L Vitamin B12 (239-931) pg/mL TSH 3rd Generation (0.46-4.68) mIU/ML Urine Color (YELLOW) Urine Clarity (Clear) Urine pH (5.0-8.0) Ur Specific Bennett (1.003-1.030) Urine Protein (NEGATIVE) mg/dL Urine Glucose (UA) (Normal) mg/dL Urine Ketones (NEGATIVE) mg/dL Urine Blood (NEGATIVE) Urine Nitrate (NEGATIVE) Urine Bilirubin (NEGATIVE) Urine Urobilinogen (0.2-1.0) mg/dL Ur Leukocyte Esterase (Negative) Keisha/uL Urine RBC (Auto) (0-3) /hpf Urine Microscopic WBC (0-5) /hpf Laboratory Results - last 24 hr 03/08/18 03/08/18 03/08/18 16:07 16:16 16:51 WBC 6.7 RBC 4.50 Hgb 13.3 Hct 40.5 MCV 89.9 MCH 29.5 MCHC 32.9 L RDW 12.7 Plt Count 275 MPV 8.3 Neut % (Auto) 69.5 Lymph % (Auto) 21.9 Osborne % (Auto) 7.3 Eos % (Auto) 0.8 Baso % (Auto) 0.5 Neut # (Auto) 4.6 Lymph # (Auto) 1.5 Osborne # (Auto) 0.5 Eos # (Auto) 0.1 Baso # (Auto) 0.0 Sodium Potassium Chloride Carbon Dioxide Anion Gap BUN Creatinine Est GFR ( Amer) Est GFR (Non-Af Amer) POC Glucose (mg/dL) > 500 H* > 500 H* Random Glucose Hemoglobin A1c Serum Osmolality Calcium Total Bilirubin AST ALT Alkaline Phosphatase Total Protein Albumin Globulin Albumin/Globulin Ratio Amylase Lipase Vitamin B12 TSH 3rd Generation Urine Color Urine Clarity Urine pH Ur Specific Bennett Urine Protein Urine Glucose (UA) Urine Ketones Urine Blood Urine Nitrate Urine Bilirubin Urine Urobilinogen Ur Leukocyte Esterase Urine RBC (Auto) Urine Microscopic WBC 03/08/18 03/08/18 03/08/18 16:51 18:00 18:44 WBC RBC Hgb Hct MCV MCH MCHC RDW Plt Count MPV Neut % (Auto) Lymph % (Auto) Osborne % (Auto) Eos % (Auto) Baso % (Auto) Neut # (Auto) Lymph # (Auto) Osborne # (Auto) Eos # (Auto) Baso # (Auto) Sodium 129 L Potassium 4.7 Chloride 90 L Carbon Dioxide 25 Anion Gap 19 BUN 23 H Creatinine 1.1 Est GFR ( Amer) > 60 Est GFR (Non-Af Amer) > 60 POC Glucose (mg/dL) > 500 H* Random Glucose 818 H* Hemoglobin A1c Serum Osmolality 304 H Calcium 9.2 Total Bilirubin 0.6 AST 42 ALT 45 Alkaline Phosphatase 148 H Total Protein 8.2 Albumin 4.2 Globulin 4.0 H Albumin/Globulin Ratio 1.1 Amylase Lipase Vitamin B12 TSH 3rd Generation Urine Color Urine Clarity Urine pH Ur Specific Bennett Urine Protein Urine Glucose (UA) Urine Ketones Urine Blood Urine Nitrate Urine Bilirubin Urine Urobilinogen Ur Leukocyte Esterase Urine RBC (Auto) Urine Microscopic WBC 03/08/18 03/08/18 03/08/18 19:02 19:02 19:46 WBC RBC Hgb Hct MCV MCH MCHC RDW Plt Count MPV Neut % (Auto) Lymph % (Auto) Osborne % (Auto) Eos % (Auto) Baso % (Auto) Neut # (Auto) Lymph # (Auto) Osborne # (Auto) Eos # (Auto) Baso # (Auto) Sodium Potassium Chloride Carbon Dioxide Anion Gap BUN Creatinine Est GFR ( Amer) Est GFR (Non-Af Amer) POC Glucose (mg/dL) 340 H Random Glucose Hemoglobin A1c Serum Osmolality Calcium Total Bilirubin AST ALT Alkaline Phosphatase Total Protein Albumin Globulin Albumin/Globulin Ratio Amylase 105 Lipase 511 H Vitamin B12 TSH 3rd Generation Urine Color Straw Urine Clarity Clear Urine pH 6.0 Ur Specific Bennett 1.028 Urine Protein Negative Urine Glucose (UA) >=500 Urine Ketones Trace Urine Blood Negative Urine Nitrate Negative Urine Bilirubin Negative Urine Urobilinogen 0.2-1.0 Ur Leukocyte Esterase Neg Urine RBC (Auto) 2 Urine Microscopic WBC 1 03/08/18 03/08/18 03/08/18 20:49 22:08 23:07 WBC RBC Hgb Hct MCV MCH MCHC RDW Plt Count MPV Neut % (Auto) Lymph % (Auto) Osborne % (Auto) Eos % (Auto) Baso % (Auto) Neut # (Auto) Lymph # (Auto) Osborne # (Auto) Eos # (Auto) Baso # (Auto) Sodium Potassium Chloride Carbon Dioxide Anion Gap BUN Creatinine Est GFR ( Amer) Est GFR (Non-Af Amer) POC Glucose (mg/dL) 167 H 73 74 Random Glucose Hemoglobin A1c Serum Osmolality Calcium Total Bilirubin AST ALT Alkaline Phosphatase Total Protein Albumin Globulin Albumin/Globulin Ratio Amylase Lipase Vitamin B12 TSH 3rd Generation Urine Color Urine Clarity Urine pH Ur Specific Bennett Urine Protein Urine Glucose (UA) Urine Ketones Urine Blood Urine Nitrate Urine Bilirubin Urine Urobilinogen Ur Leukocyte Esterase Urine RBC (Auto) Urine Microscopic WBC 03/09/18 03/09/18 03/09/18 00:04 01:04 02:04 WBC RBC Hgb Hct MCV MCH MCHC RDW Plt Count MPV Neut % (Auto) Lymph % (Auto) Osborne % (Auto) Eos % (Auto) Baso % (Auto) Neut # (Auto) Lymph # (Auto) Osborne # (Auto) Eos # (Auto) Baso # (Auto) Sodium Potassium Chloride Carbon Dioxide Anion Gap BUN Creatinine Est GFR ( Amer) Est GFR (Non-Af Amer) POC Glucose (mg/dL) 95 126 H 124 H Random Glucose Hemoglobin A1c Serum Osmolality Calcium Total Bilirubin AST ALT Alkaline Phosphatase Total Protein Albumin Globulin Albumin/Globulin Ratio Amylase Lipase Vitamin B12 TSH 3rd Generation Urine Color Urine Clarity Urine pH Ur Specific Bennett Urine Protein Urine Glucose (UA) Urine Ketones Urine Blood Urine Nitrate Urine Bilirubin Urine Urobilinogen Ur Leukocyte Esterase Urine RBC (Auto) Urine Microscopic WBC 03/09/18 03/09/18 03/09/18 04:10 04:20 04:20 WBC 6.3 RBC 3.96 L Hgb 11.8 L Hct 34.6 L MCV 87.3 D MCH 29.9 MCHC 34.3 RDW 12.3 Plt Count 226 MPV 7.9 Neut % (Auto) 52.1 Lymph % (Auto) 36.4 Osborne % (Auto) 8.6 Eos % (Auto) 2.3 Baso % (Auto) 0.6 Neut # (Auto) 3.3 Lymph # (Auto) 2.3 Osborne # (Auto) 0.5 Eos # (Auto) 0.1 Baso # (Auto) 0.0 Sodium 136 Potassium 3.7 Chloride 103 Carbon Dioxide 26 Anion Gap 11 BUN 17 Creatinine 0.9 Est GFR ( Amer) > 60 Est GFR (Non-Af Amer) > 60 POC Glucose (mg/dL) 166 H Random Glucose 180 H Hemoglobin A1c Serum Osmolality Calcium 8.4 Total Bilirubin 0.5 AST 44 ALT 37 Alkaline Phosphatase 103 Total Protein 6.7 Albumin 3.2 L D Globulin 3.5 Albumin/Globulin Ratio 0.9 L Amylase Lipase Vitamin B12 TSH 3rd Generation Urine Color Urine Clarity Urine pH Ur Specific Bennett Urine Protein Urine Glucose (UA) Urine Ketones Urine Blood Urine Nitrate Urine Bilirubin Urine Urobilinogen Ur Leukocyte Esterase Urine RBC (Auto) Urine Microscopic WBC 03/09/18 03/09/18 06:55 07:00 WBC RBC Hgb Hct MCV MCH MCHC RDW Plt Count MPV Neut % (Auto) Lymph % (Auto) Osborne % (Auto) Eos % (Auto) Baso % (Auto) Neut # (Auto) Lymph # (Auto) Osborne # (Auto) Eos # (Auto) Baso # (Auto) Sodium Potassium Chloride Carbon Dioxide Anion Gap BUN Creatinine Est GFR ( Amer) Est GFR (Non-Af Amer) POC Glucose (mg/dL) Random Glucose Hemoglobin A1c 14.2 H Serum Osmolality Calcium Total Bilirubin AST ALT Alkaline Phosphatase Total Protein Albumin Globulin Albumin/Globulin Ratio Amylase Lipase Vitamin B12 821 TSH 3rd Generation 1.27 Urine Color Urine Clarity Urine pH Ur Specific Bennett Urine Protein Urine Glucose (UA) Urine Ketones Urine Blood Urine Nitrate Urine Bilirubin Urine Urobilinogen Ur Leukocyte Esterase Urine RBC (Auto) Urine Microscopic WBC Fingerstick Blood Sugar Results: 348 Review of Systems - Cardiovascular Cardiovascular: absent: As Per HPI, Acrocyanosis, Chest Pain, Chest Pain at Rest, Chest Pain with Activity, Claudication, Diaphoresis, Dyspnea, Dyspnea on Exertion, Edema, Irregular Heart Rhythm, Pain Radiating to Arm/Neck/Jaw, Leg Edema, Leg Ulcers, Lightheadedness, Orthopnea, Palpitations, Paroxysmal Nocturnal Dyspnea, Pedal Edema, Radiating Pain, Rapid Heart Rate, Slow Heart Rate, Syncope, Other, UNREMARKABLE - Respiratory Respiratory: absent: As Per HPI, Cough, Dyspnea, Hemoptysis, Dyspnea on Exertion, Wheezing, Snoring, Stridor, Pain on Inspiration, Chest Congestion, Excessive Mucous Production, Change in Mucous Color, Pain with Coughing, Other, UNREMARKABLE - Gastrointestinal Gastrointestinal: Abdominal Pain, Heartburn. absent: Coffee Ground Emesis, Melena, Nausea, Vomiting Critical Care Progress Note - Extremities/Vascular Does the Patient need a Central Venous Catheter?: No Does the Patient have a Hurst Catheter?: No Does the Patient need a Hurst Catheter?: No - Nutrition Nutrition: Nutrition Category Date Time Status Consistent Carbohydrate [DIET] Diets 03/09/18 Breakfast Active Assessment/Plan (1) Hyperosmolar non-ketotic state in patient with type 2 diabetes mellitus Current Visit: Yes Status: Acute Priority: High (2) Asthma Current Visit: No Status: Chronic Priority: Medium
[2018-03-09] MEDS: Enoxaparin 40 mg Syringe SC SCH (17:09)
[2018-03-09] MEDS ORDERED: Insulin Detemir 100 Units/ml Inj SC SCH (22:00)
[2018-03-10] MEDS: Insulin Lispro (humaLOG) 100 Units/ml Inj SC SCH ×3 (01:22→08:30)
[2018-03-10 05:44] LABS: HEMOGLOBIN 13.1 g/dL (12.0-18.0); MEAN CELL VOLUME 87.4 fl (80.0-94.0); MEAN CORPUSCULAR HEMOGLOBIN 29.4 pg (27.0-31.0); MEAN CORPUSCULAR HGB CONC 33.6 g/dL (33.0-37.0); RBC 4.45 Mil/uL (4.40-5.90); RED CELL DISTRIBUTION WIDTH 12.9 % (11.5-14.5); WHITE BLOOD COUNT 6.4 K/uL (4.8-10.8)
[2018-03-10 06:35] LABS: ALB/GLOB RATIO 0.9 (1.0-2.1); ALBUMIN 3.5 g/dL (3.5-5.0); ALT/SGPT 42 U/L (21-72); AST/SGOT 47 U/L (17-59); BLOOD UREA NITROGEN 11 mg/dl (9-20); CALCIUM 8.7 mg/dL (8.4-10.2); GFR NON-AFRICAN AMERICAN > 60
[2018-03-10 08:31] VITALS: RESP 11; TEMP 98.7; O2SAT 95
--- NOTE | 2018-03-10 09:15 | CON ---
DATE: 03/10/2018 LOCATION: Room 422. HISTORY OF PRESENT ILLNESS: This is a 53-year-old male with known history of type 2 insulin-requiring diabetes, presenting here with severe left lower quadrant pain and currently undergoing GI workup at this time and is also being referred for diabetic evaluation and management. PAST MEDICAL HISTORY: As mentioned above, history of type 2 insulin-requiring diabetes, on a combination of a long acting insulin Tresiba given as 20 units at bedtime and Humalog given as 10 units t.i.d. before meals, with persistent glycemic fluctuations and suboptimal metabolic control thereof. History of hypertension and dyslipidemia, history of coronary artery disease and peripheral arterial disease and vasculopathy with previous right below-knee amputation and also toe amputations in the left foot as noted. History of diabetic polyneuropathy also as noted. FAMILY HISTORY: Positive for diabetes and hypertension. SOCIAL HISTORY: The patient has supportive family. No known substance use. REVIEW OF SYSTEMS: As mentioned above. Admits to generalized body weakness with easy fatigability and tiredness and episodic bouts of dizziness and lightheadedness. No chest pains or palpitations or PND. His oral intake has been variable with nausea, dyspepsia, vague upper abdominal pain, and supervening severe left lower quadrant pain prompting this admission as noted. PHYSICAL EXAMINATION: GENERAL: This is an average-built male in no apparent distress. VITAL SIGNS: Blood pressure of 150/90, pulse of 70 beats per minute and regular, temperature 99, respirations 20. Height is 5 feet 7 inches, weight is 175 pounds. HEENT: Head normocephalic. Eyes anicteric with pink conjunctivae. Funduscopy not possible at this time. Ears, nose, and throat otherwise normal. NECK: Supple. Thyroid gland is normal in size. No carotid bruits or cervical adenopathy. CARDIOPULMONARY: Some adynamic precordium. S1, S2 rapid and regular. LUNGS: Clear to auscultation. ABDOMEN: Flat, soft, positive bowel sounds. EXTREMITIES: No peripheral edema in the left leg, the right below-knee amputation stump is healed with diminished pulses as noted. LABORATORY DATA: The initial chemistry showed a BUN of 23, sodium 129, potassium 4.7, chloride 90, CO2 of 25, glucose 818, and creatinine 1.1. His hemoglobin A1c is actually quite elevated at 40.2%. ASSESSMENT: This is a 53-year-old male with uncontrolled, decompensated type 2 insulin-requiring diabetes, presenting here with left lower quadrant pain and concurrent hyperosmolar and hyperglycemic state with dehydration and prerenal azotemia as noted. He also has diabetic microvascular complications of polyneuropathy and macrovascular complications of coronary artery disease and peripheral arterial disease and vasculopathy with a prior right below-knee amputation. PLAN OF MANAGEMENT: We will modify his current insulin regimen as ordered and we will actually concur with the aforementioned drug combination of NovoLog and Levemir as given and titrate incrementally to optimize metabolic control. If the patient has no insurance and has financial constraints, we would recommend a more affordable and cheaper conventional insulin, as a combination of NPH and regular insulin given twice daily or the premixed insulin with basal insulin as indicated. We will follow. Rosalina Da Silva MD
--- NOTE | 2018-03-10 09:54 | CP.PCM.DIS ---
Provider - Provider Date of Admission: 03/08/18 18:13 Attending physician: Fernando Snyder MD Time Spent in preparation of Discharge (in minutes): 30 Diagnosis - Discharge Diagnosis (1) Hyperosmolar non-ketotic state in patient with type 2 diabetes mellitus Status: Resolved Priority: High (2) Hiatal hernia Status: Chronic (3) Abdominal pain Status: Resolved (4) Diabetes mellitus Status: Chronic Hospital Course - Lab Results Lab Results: Most Recent Lab Values WBC 6.4 K/uL (4.8-10.8) 03/10/18 04:20 RBC 4.45 Mil/uL (4.40-5.90) 03/10/18 04:20 Hgb 13.1 g/dL (12.0-18.0) 03/10/18 04:20 Hct 38.9 % (35.0-51.0) 03/10/18 04:20 MCV 87.4 fl (80.0-94.0) 03/10/18 04:20 MCH 29.4 pg (27.0-31.0) 03/10/18 04:20 MCHC 33.6 g/dL (33.0-37.0) 03/10/18 04:20 RDW 12.9 % (11.5-14.5) 03/10/18 04:20 Plt Count 258 K/uL (130-400) 03/10/18 04:20 MPV 7.9 fl (7.2-11.7) 03/09/18 04:20 Neut % (Auto) 52.1 % (50.0-75.0) 03/09/18 04:20 Lymph % (Auto) 36.4 % (20.0-40.0) 03/09/18 04:20 [place] % (Auto) 8.6 % (0.0-10.0) 03/09/18 04:20 Eos % (Auto) 2.3 % (0.0-4.0) 03/09/18 04:20 Baso % (Auto) 0.6 % (0.0-2.0) 03/09/18 04:20 Neut # (Auto) 3.3 K/uL (1.8-7.0) 03/09/18 04:20 Lymph # (Auto) 2.3 K/uL (1.0-4.3) 03/09/18 04:20 [place] # (Auto) 0.5 K/uL (0.0-0.8) 03/09/18 04:20 Eos # (Auto) 0.1 K/uL (0.0-0.7) 03/09/18 04:20 Baso # (Auto) 0.0 K/uL (0.0-0.2) 03/09/18 04:20 Sodium 137 mmol/l (132-148) 03/10/18 04:20 Potassium 4.4 MMOL/L (3.6-5.0) 03/10/18 04:20 Chloride 103 mmol/L (98-107) 03/10/18 04:20 Carbon Dioxide 25 mmol/L (22-30) 03/10/18 04:20 Anion Gap 13 (10-20) 03/10/18 04:20 BUN 11 mg/dl (9-20) 03/10/18 04:20 Creatinine 0.9 mg/dl (0.8-1.5) 03/10/18 04:20 Est GFR ( Amer) > 60 03/10/18 04:20 Est GFR (Non-Af Amer) > 60 03/10/18 04:20 POC Glucose (mg/dL) 228 mg/dL (65-110) H 03/10/18 00:12 Random Glucose 230 mg/dL (75-110) H 03/10/18 04:20 Hemoglobin A1c 14.2 % (4.2-6.5) H 03/09/18 06:55 Serum Osmolality 304 mosm/kg (272-300) H 03/08/18 18:44 Calcium 8.7 mg/dL (8.4-10.2) 03/10/18 04:20 Phosphorus 3.3 mg/dl (2.5-4.5) 03/10/18 04:20 Magnesium 2.0 MG/DL (1.6-2.3) 03/10/18 04:20 Total Bilirubin 0.4 mg/dl (0.2-1.3) 03/10/18 04:20 AST 47 U/L (17-59) 03/10/18 04:20 ALT 42 U/L (21-72) 03/10/18 04:20 Alkaline Phosphatase 107 U/L (38-126) 03/10/18 04:20 Total Protein 7.2 G/DL (6.3-8.2) 03/10/18 04:20 Albumin 3.5 g/dL (3.5-5.0) 03/10/18 04:20 Globulin 3.7 gm/dL (2.2-3.9) 03/10/18 04:20 Albumin/Globulin Ratio 0.9 (1.0-2.1) L 03/10/18 04:20 Amylase 105 U/L (30-110) 03/08/18 19:02 Lipase 511 U/L (23-300) H 03/08/18 19:02 Vitamin B12 821 pg/mL (239-931) 03/09/18 07:00 TSH 3rd Generation 1.27 mIU/ML (0.46-4.68) 03/09/18 07:00 Urine Color Straw (YELLOW) 03/08/18 19:02 Urine Clarity Clear (Clear) 03/08/18 19:02 Urine pH 6.0 (5.0-8.0) 03/08/18 19:02 Ur Specific Lyman 1.028 (1.003-1.030) 03/08/18 19:02 Urine Protein Negative mg/dL (NEGATIVE) 03/08/18 19:02 Urine Glucose (UA) >=500 mg/dL (Normal) 03/08/18 19:02 Urine Ketones Trace mg/dL (NEGATIVE) 03/08/18 19:02 Urine Blood Negative (NEGATIVE) 03/08/18 19: Urine Nitrate Negative (NEGATIVE) 03/08/18 19: Urine Bilirubin Negative (NEGATIVE) 03/08/18 19:02 Urine Urobilinogen 0.2-1.0 mg/dL (0.2-1.0) 03/08/18 19:02 Ur Leukocyte Esterase Neg Keisha/uL (Negative) 03/08/18 19:02 Urine RBC (Auto) 2 /hpf (0-3) 03/08/18 19:02 Urine Microscopic WBC 1 /hpf (0-5) 03/08/18 19:02 - Hospital Course Hospital Course: 53 y/o male with a past medical history of DMII, HTN, RBKA and amputation of left toes presented to [facility] ED on 03/08/18 with c/o LLQ pain onset for x3 days associated with x1 episode of vomiting. Denies any chest pain, dyspnea, headache, dizziness, fever, chills or focal weakness. Patient reports he did not take his DMII medications for one month due to not having insurance. Patients serum glucose was 818 in the ED and admitted for HSS and abdominal pain. Patient was on insulin drip and then changed to his home regimen. Today, patient denies any abdominal pain, nausea, or vomiting. Patient is tolerating PO. Patient is medically stable to discharge home. Advised to f/u with Dr. Snyder. Discharge Exam - Head Exam Head Exam: ATRAUMATIC, NORMOCEPHALIC - Eye Exam Eye Exam: EOMI, Normal appearance - ENT Exam ENT Exam: Mucous Membranes Moist - Respiratory Exam Respiratory Exam: Clear to PA & Lateral. absent: Wheezes, Respiratory Distress - Cardiovascular Exam Cardiovascular Exam: REGULAR RHYTHM, +S1, +S2 - GI/Abdominal Exam GI & Abdominal Exam: Normal Bowel Sounds, Soft. absent: Tenderness - Neurological Exam Neurological exam: Alert, Oriented x3 - Psychiatric Exam Psychiatric exam: Normal Affect, Normal Mood - Skin Skin Exam: Normal Color, Warm Discharge Plan - Discharge Medications Prescriptions: Atorvastatin [Lipitor] 20 mg PO DAILY #14 tab Insulin Aspart, Recombinant [Novolog] 10 unit SC ACTID #5 unit Insulin Degludec [Tresiba Flextouch U-100] 20 unit SC HS #5 insuln.pen Losartan [Cozaar] 50 mg PO DAILY #30 tab Pantoprazole [Protonix] 40 mg PO DAILY #30 ect - Follow Up Plan Condition: GUARDED Disposition: HOME/ ROUTINE Instructions: Hiatal Hernia, Type 2 Diabetes Additional Instructions: Please follow up with Dr. Snyder on Thursday04/15/18 at 1 pm Referrals: Fernando Snyder MD [Staff Provider] -
[2018-03-10] MEDS: Enoxaparin 40 mg Syringe SC SCH (10:17)
[2018-03-10 10:32] VITALS: BP 137/90; PULSE 85
[2018-03-10] MEDS ORDERED: Insulin Detemir 100 Units/ml Inj SC SCH (22:00)
--- NOTE | 2018-03-11 02:59 | PN ---
DATE: 03/10/2018 ENDOCRINOLOGY FOLLOWUP NOTE LOCATION: ICU room 432. SUBJECTIVE: This is a 53-year-old male with recent uncontrolled type 2 insulin-requiring diabetes, presenting here with left lower quadrant pain and evaluated also to have marked hyperglycemic accelerations as noted thereof. His glycemic levels are fluctuating but improved, and the latest chemistries showed a BUN of 11, sodium 137, potassium 4.4, chloride 103, CO2 of 25, glucose 230, and creatinine 0.9. His glucose values today have ranged from 228 to 230 and 195 mg/dL. ASSESSMENT AND PLAN: So at this time, we will advise him to resume his home insulin regimen which is a combination of Tresiba of 20 units at bedtime with NovoLog given as 10 units t.i.d. before meals as ordered. He has been advised to follow with his medical doctor for ongoing diabetic management. We will follow. Rosalina Da Silva MD
== END 2018-03-10 11:30 | disposition home or self-care (01) | DRG 639 ==
LOC: H.ER 16:01 → H.ERHOLD 18:13 → H.ICU/CCU 21:19
PROVIDERS: ADMIT Internal Medicine; ATTEND Internal Medicine
PROC: 3E0234Z Introduction of Serum, Toxoid and Vaccine into Muscle, Percutaneous Approach (ICD-10-PCS; principal; 2018-03-09)
DX: E11.00 Type 2 diabetes mellitus with hyperosmolarity without nonketotic hyperglycemic-hyperosmolar coma (NKHHC) (principal); E11.42 Type 2 diabetes mellitus with diabetic polyneuropathy; E11.51 Type 2 diabetes mellitus with diabetic peripheral angiopathy without gangrene; E86.0 Dehydration; E78.5 Hyperlipidemia, unspecified; R10.32 Left lower quadrant pain; F17.210 Nicotine dependence, cigarettes, uncomplicated; I10 Essential (primary) hypertension; Z23 Encounter for immunization; Z91.013 Allergy to seafood; Z91.018 Allergy to other foods; Z79.4 Long term (current) use of insulin; Z89.511 Acquired absence of right leg below knee; Z89.422 Acquired absence of other left toe(s); Z91.14 Patient's other noncompliance with medication regimen; J45.909 Unspecified asthma, uncomplicated; K44.9 Diaphragmatic hernia without obstruction or gangrene; E11.319 Type 2 diabetes mellitus with unspecified diabetic retinopathy without macular edema

== ENCOUNTER 2018-04-03 12:17 | Observation (INO) | payer OTHER, SELFPAY ==
[2018-04-03] MEDS ORDERED: Sodium Chloride 0.9% 1,000 ML IV STA ×2 (12:36→14:04)
--- NOTE | 2018-04-03 12:39 | ED PDOC ---
HPI: Abdomen Time Seen by Provider: 04/03/18 12:35 Chief Complaint (Nursing): Abdominal Pain History Per: Patient Onset/Duration Of Symptoms: Days (1) Current Symptoms Are (Timing): Still Present Severity: Moderate Location Of Pain/Discomfort: LUQ, LLQ Quality Of Discomfort: Unable To Describe Associated Symptoms: Nausea. denies: Fever, Vomiting, Urinary Symptoms Exacerbating Factors: None Alleviating Factors: None Additional Complaint(s): Left sided abd pain assoc with nausea since last night Denies fever. No urinary sxs Past Medical History Vital Signs: Last Vital Signs Temp 98.3 F 04/03/18 12:25 Pulse 111 H 04/03/18 12:25 Resp 20 04/03/18 12:25 BP 110/74 04/03/18 12:25 Pulse Ox 100 04/03/18 12:25 - Medical History PMH: Asthma, Diabetes - Surgical History Other surgeries: Right BKA - Family History Family History: States: Unknown Family Hx - Home Medications Home Medications: Ambulatory Orders Medication Instructions Recorded Atorvastatin [Lipitor] 20 mg PO DAILY #14 tab 03/10/18 Insulin Aspart, Recombinant 10 unit SC ACTID #5 unit 03/10/18 [Novolog] Insulin Degludec [Tresiba 20 unit SC HS #5 insuln.pen 03/10/18 Flextouch U-100] Losartan [Cozaar] 50 mg PO DAILY #30 tab 03/10/18 Pantoprazole [Protonix] 40 mg PO DAILY #30 ect 03/10/18 - Allergies Allergies/Adverse Reactions: Allergies Allergy/AdvReac Type Severity Reaction Status Date / Time FISH Allergy RASH Verified 03/08/18 16:06 hazelnut Allergy RASH Verified 03/08/18 16:06 Review of Systems ROS Statement: Except As Marked, All Systems Reviewed And Found Negative Constitutional: Negative for: Fever Gastrointestinal: Positive for: Nausea, Abdominal Pain Physical Exam - Reviewed Nursing Documentation Reviewed: Yes Vital Signs Reviewed: Yes - Physical Exam Appears: Positive for: Non-toxic, Uncomfortable Head Exam: Positive for: ATRAUMATIC, NORMAL INSPECTION, NORMOCEPHALIC Skin: Positive for: Normal Color, Warm, DRY Eye Exam: Positive for: EOMI, Normal appearance, PERRL ENT: Positive for: Normal ENT Inspection Neck: Positive for: Normal, Painless ROM Cardiovascular/Chest: Positive for: Regular Rate, Rhythm Respiratory: Positive for: CNT, Normal Breath Sounds Gastrointestinal/Abdominal: Positive for: Soft, Tenderness (LLQ) Back: Positive for: Normal Inspection Extremity: Positive for: Other (Right BKA) Neurologic/Psych: Positive for: Alert, Oriented - Laboratory Results Result Diagrams: 04/03/18 12:41 04/03/18 12:41 - ECG O2 Sat by Pulse Oximetry: 100 Disposition - Clinical Impression Clinical Impression: Diabetes mellitus, Pancreatitis - Patient ED Disposition Is Patient to be Admitted: Yes - Disposition Referrals: FAMILY PROVIDER,NO [Primary Care Provider] - Disposition Time: 14:15 Condition: FAIR Forms: [facility] (Thai) - Pt Status Changed To: Hospital Disposition Of: Observation - POA Present On Arrival: None
[2018-04-03 13:09] LABS: BASO # 0.1 K/uL (0.0-0.2); BASO % 0.8 % (0.0-2.0); EOS # 0.2 K/uL (0.0-0.7); EOS % 1.8 % (0.0-4.0); HEMOGLOBIN 13.6 g/dL (12.0-18.0); LYMPH # 2.8 K/uL (1.0-4.3); LYMPH % 30.6 % (20.0-40.0); MEAN CELL VOLUME 86.8 fl (80.0-94.0); MEAN CORPUSCULAR HEMOGLOBIN 29.3 pg (27.0-31.0); MEAN CORPUSCULAR HGB CONC 33.7 g/dL (33.0-37.0); MEAN PLATELET VOLUME 7.9 fl (7.2-11.7); MONO # 0.4 K/uL (0.0-0.8); MONO % 4.8 % (0.0-10.0); NEUT # 5.8 K/uL (1.8-7.0); RBC 4.67 Mil/uL (4.40-5.90); RED CELL DISTRIBUTION WIDTH 13.1 % (11.5-14.5); WHITE BLOOD COUNT 9.3 K/uL (4.8-10.8)
--- NOTE | 2018-04-03 13:20 | CT ---
Date of service: 04/03/2018 PROCEDURE: CT Abdomen and Pelvis without intravenous contrast HISTORY: r/o kidney stone COMPARISON: CT scan of the abdomen pelvis dated 03/08/2018. TECHNIQUE: Contiguous images were obtained from the domes of the diaphragms to the upper thighs without the administration of intravenous contrast. Oral contrast was not administered. Radiation dose: Total exam DLP = 708.22 mGy-cm. This CT exam was performed using one or more of the following dose reduction techniques: Automated exposure control, adjustment of the mA and/or kV according to patient size, and/or use of iterative reconstruction technique. FINDINGS: LOWER THORAX: Right middle lobe scarring. Heart size normal. Coronary arterial and valvular calcifications. LIVER: Hepatomegaly. No gross lesion or ductal dilatation. GALLBLADDER AND BILE DUCTS: Unremarkable. PANCREAS: Edematous pancreas with peripancreatic stranding. SPLEEN: Unremarkable. ADRENALS: Unremarkable. No mass. KIDNEYS AND URETERS: Unremarkable. No hydronephrosis. No solid mass. VASCULATURE: Diffuse aortic and arterial atherosclerotic calcifications can be seen with diabetes mellitus. BOWEL: Unremarkable. No obstruction. No gross mural thickening. APPENDIX: Unremarkable. Normal appendix. PERITONEUM: Unremarkable. No free fluid. No free air. LYMPH NODES: Unremarkable. No enlarged lymph nodes. BLADDER: Unremarkable. REPRODUCTIVE: Unremarkable. BONES: No acute fracture. OTHER FINDINGS: None. IMPRESSION: Acute pancreatitis. No evidence of hemorrhage, necrosis or adjacent peripancreatic collection. Additional stable findings as above.
[2018-04-03 13:33] LABS: ALB/GLOB RATIO 1.1 (1.0-2.1); ALBUMIN 4.2 g/dL (3.5-5.0); ALT/SGPT 59 U/L (21-72); AST/SGOT 54 U/L (17-59); BLOOD UREA NITROGEN 17 mg/dl (9-20); CALCIUM 9.5 mg/dL (8.4-10.2); GFR NON-AFRICAN AMERICAN > 60; LIPASE 75 U/L (23-300)
[2018-04-03] MEDS ORDERED: Dextrose 50% SYRINGE Inj (50 ml) IV PRN (14:04)
[2018-04-03] MEDS ORDERED: Insulin Regular 100 units/ml SC STA (14:04)
[2018-04-03] MEDS ORDERED: Glucagon Recombinant 1 mg Inj IM PRN (14:04)
[2018-04-03] MEDS ORDERED: Insulin Regular 100 units/ml ONE (14:31)
[2018-04-03] MEDS: Lactated Ringer's 1,000 ML IV SCH ×3 (18:38→22:44)
[2018-04-03] MEDS: Insulin Regular 100 units/ml SC SCH (22:44)
[2018-04-04] MEDS: Lactated Ringer's 1,000 ML IV SCH ×3 (06:30→23:05)
[2018-04-04] MEDS ORDERED: Insulin Regular 100 units/ml ONE ×2 (07:44→22:37)
[2018-04-04] MEDS: Insulin Regular 100 units/ml SC SCH ×4 (07:45→23:05)
[2018-04-04 09:35] LABS: HEMOGLOBIN 11.9 g/dL (12.0-18.0); MEAN CORPUSCULAR HEMOGLOBIN 29.4 pg (27.0-31.0); MEAN CORPUSCULAR HGB CONC 33.8 g/dL (33.0-37.0); RBC 4.05 Mil/uL (4.40-5.90); WHITE BLOOD COUNT 6.1 K/uL (4.8-10.8)
[2018-04-04 09:51] LABS: ALBUMIN 3.2 g/dL (3.5-5.0); ALT/SGPT 54 U/L (21-72); AST/SGOT 41 U/L (17-59); BLOOD UREA NITROGEN 17 mg/dl (9-20); CALCIUM 8.7 mg/dL (8.4-10.2); GFR NON-AFRICAN AMERICAN > 60; LIPASE 45 U/L (23-300)
[2018-04-05 06:22] LABS: HEMOGLOBIN 12.1 g/dL (12.0-18.0); MEAN CELL VOLUME 87.6 fl (80.0-94.0); MEAN CORPUSCULAR HEMOGLOBIN 29.9 pg (27.0-31.0); MEAN CORPUSCULAR HGB CONC 34.1 g/dL (33.0-37.0); RBC 4.06 Mil/uL (4.40-5.90); WHITE BLOOD COUNT 5.8 K/uL (4.8-10.8)
[2018-04-05] MEDS: Insulin Regular 100 units/ml SC SCH ×4 (06:27→21:40)
[2018-04-05 07:01] LABS: ALB/GLOB RATIO 0.9 (1.0-2.1); ALBUMIN 3.2 g/dL (3.5-5.0); ALT/SGPT 44 U/L (21-72); AST/SGOT 31 U/L (17-59); BLOOD UREA NITROGEN 10 mg/dl (9-20); CALCIUM 8.5 mg/dL (8.4-10.2); GFR NON-AFRICAN AMERICAN > 60; LIPASE 20 U/L (23-300)
--- NOTE | 2018-04-05 07:19 | CP.PCM.HP ---
History of Present Illness - History of Present Illness History of Present Illness: This is a 53 y/o male admitted for abdominal pain for 1 day without any associated sx of vomiting or diarrhea. He was noted to have pancreatitis on CT scan. Lipase was normal. Patient hs a hx of DM 2 uncontrolled., HTN and Hyperlipidemia. Currently on Insulin , atorvastatin and Losartan, Present on Admission - Present on Admission Any Indicators Present on Admission: No History of DVT/PE: No History of Uncontrolled Diabetes: Yes Urinary Catheter: No Decubitus Ulcer Present: No Past Patient History - Infectious Disease Hx of Infectious Diseases: None - Past Social History Smoking Status: Light Smoker < 10 Cigarettes Daily - CARDIAC Hx Cardiac Disorders: Yes - PULMONARY Hx Asthma: Yes - ENDOCRINE/METABOLIC Hx Endocrine Disorders: Yes - MUSCULOSKELETAL/RHEUMATOLOGICAL Hx Falls: No - PSYCHIATRIC Hx Substance Use: No - SURGICAL HISTORY Other/Comment: RBKA, left toes amputation - ANESTHESIA Hx Anesthesia: Yes Hx Anesthesia Reactions: No Meds Allergies/Adverse Reactions: Allergies Allergy/AdvReac Type Severity Reaction Status Date / Time FISH Allergy RASH Verified 03/08/18 16:06 hazelnut Allergy RASH Verified 03/08/18 16:06 Physical Exam - Head Exam Head Exam: NORMAL INSPECTION - Eye Exam Eye Exam: Normal appearance - Respiratory Exam Respiratory Exam: Clear to Auscultation Bilateral - Cardiovascular Exam Cardiovascular Exam: REGULAR RHYTHM - GI/Abdominal Exam GI & Abdominal Exam: Guarding, Normal Bowel Sounds, Tenderness - Neurological Exam Neurological exam: CN II-XII Intact, Oriented x3 Results - Vital Signs Recent Vital Signs: Last Vital Signs Temp 97.7 F 04/05/18 06:40 Pulse 83 04/05/18 06:40 Resp 20 04/05/18 06:40 BP 153/94 H 04/05/18 06:40 Pulse Ox 96 04/05/18 06:40 - Labs Result Diagrams: 04/05/18 05:50 04/05/18 05:50 Labs: Laboratory Results - last 24 hr 04/04/18 04/04/18 04/05/18 09:00 09:00 05:50 WBC 6.1 5.8 RBC 4.05 L 4.06 L Hgb 11.9 L 12.1 Hct 35.3 35.6 MCV 87.0 87.6 MCH 29.4 29.9 MCHC 33.8 34.1 RDW 13.0 13.0 Plt Count 213 D 210 Sodium 136 Potassium 4.2 Chloride 101 Carbon Dioxide 26 Anion Gap 13 BUN 17 Creatinine 0.9 Est GFR ( Amer) > 60 Est GFR (Non-Af Amer) > 60 Random Glucose 300 H Calcium 8.7 Total Bilirubin 0.7 AST 41 ALT 54 Alkaline Phosphatase 172 H D Total Protein 6.6 Albumin 3.2 L D Globulin 3.4 Albumin/Globulin Ratio 1.0 Lipase 45 04/05/18 05:50 WBC RBC Hgb Hct MCV MCH MCHC RDW Plt Count Sodium 133 Potassium 4.0 Chloride 99 Carbon Dioxide 25 Anion Gap 13 BUN 10 Creatinine 0.7 L Est GFR ( Amer) > 60 Est GFR (Non-Af Amer) > 60 Random Glucose 326 H Calcium 8.5 Total Bilirubin 0.7 AST 31 ALT 44 Alkaline Phosphatase 171 H Total Protein 6.7 Albumin 3.2 L Globulin 3.5 Albumin/Globulin Ratio 0.9 L Lipase 20 L Assessment & Plan (1) Pancreatitis Status: Acute (2) Diabetes mellitus type 2 in obese Status: Acute (3) Hypertension Status: Acute (4) Hyperlipidemia Status: Acute - Assessment and Plan (Free Text) Plan: Keep NPO Monitor labs GI eval accucheck with covergae Hydration pain meds.
--- NOTE | 2018-04-05 07:25 | CP.PCM.PN ---
Subjective - Date & Time of Evaluation Date of Evaluation: 04/04/18 Time of Evaluation: 18:00 - Subjective Subjective: Patient claims to have less abd pain and desires to eat. Dr Yeung was contacted and suggested maintaining on clear liquids for now. Accucheck remains elevated. Has no fever. Objective - Vital Signs/Intake and Output Vital Signs (last 24 hours): Temp Pulse Resp BP Pulse Ox 97.7 F 83 20 153/94 H 96 04/05/18 06:40 04/05/18 06:40 04/05/18 06:40 04/05/18 06:40 04/05/18 06:40 - Medications Medications: Current Medications Dextrose (Dextrose 50% Inj) 0 ml IV STAT PRN; Protocol PRN Reason: Hypoglycemia Protocol Dextrose (Glutose 15) 0 gm PO ONCE PRN; Protocol PRN Reason: Hypoglycemia Protocol Glucagon (Glucagen Diagnostic Kit) 0 mg IM STAT PRN; Protocol PRN Reason: Hypoglycemia Protocol Lactated Ringer's (Lactated Ringer's) 1,000 mls @ 125 mls/hr IV .Q8H [facility] Last Admin: 04/04/18 23:05 Dose: 125 mls/hr Insulin Human Regular (Humulin R) 0 units SC ACHS GET; Protocol Last Admin: 04/05/18 06:27 Dose: 6 units Morphine Sulfate (Morphine) 2 mg IVP Q4 PRN PRN Reason: Pain, moderate (4-7) Last Admin: 04/05/18 01:10 Dose: 2 mg Pantoprazole Sodium (Protonix Inj) 40 mg IVP DAILY GET Last Admin: 04/04/18 09:15 Dose: 40 mg - Labs Labs: 04/05/18 05:50 04/05/18 05:50 - Head Exam Head Exam: NORMAL INSPECTION - Eye Exam Eye Exam: Normal appearance - ENT Exam ENT Exam: Mucous Membranes Moist - Respiratory Exam Respiratory Exam: Clear to Ausculation Bilateral - Cardiovascular Exam Cardiovascular Exam: REGULAR RHYTHM - GI/Abdominal Exam GI & Abdominal Exam: Hypoactive Bowel Sounds - Neurological Exam Neurological Exam: Awake, CN II-XII Intact Assessment and Plan (1) Pancreatitis Status: Acute (2) Diabetes mellitus type 2 in obese Status: Acute (3) Hypertension Status: Acute (4) Hyperlipidemia Status: Acute - Assessment and Plan (Free Text) Plan: keep on clear liquids Cont tx check labs in am may need repeat CT scan of the abd.
[2018-04-05] MEDS: Lactated Ringer's 1,000 ML IV SCH ×2 (09:01→21:47)
[2018-04-05] MEDS ORDERED: Dextrose 50% SYRINGE Inj (50 ml) IV PRN (11:54)
[2018-04-05] MEDS ORDERED: Glucagon Recombinant 1 mg Inj IM PRN (11:54)
--- NOTE | 2018-04-05 12:36 | CP.PCM.PN ---
Subjective - Date & Time of Evaluation Date of Evaluation: 04/05/18 Time of Evaluation: 11:00 - Subjective Subjective: patient seen and examined at bedside. no acute events overnight. abdominal pain improving though still present. on liquid diet now. no other complaints at this time. Objective - Vital Signs/Intake and Output Vital Signs (last 24 hours): Temp Pulse Resp BP Pulse Ox 97.7 F 83 20 153/94 H 96 04/05/18 06:40 04/05/18 07:42 04/05/18 07:42 04/05/18 06:40 04/05/18 07:42 - Medications Medications: Current Medications Atorvastatin Calcium (Lipitor) 20 mg PO DAILY COUNTS INCLUDE 234 BEDS AT THE [facility] Dextrose (Dextrose 50% Inj) 0 ml IV STAT PRN; Protocol PRN Reason: Hypoglycemia Protocol Dextrose (Glutose 15) 0 gm PO ONCE PRN; Protocol PRN Reason: Hypoglycemia Protocol Dextrose (Dextrose 50% Inj) 0 ml IV STAT PRN; Protocol PRN Reason: Hypoglycemia Protocol Dextrose (Glutose 15) 0 gm PO ONCE PRN; Protocol PRN Reason: Hypoglycemia Protocol Glucagon (Glucagen Diagnostic Kit) 0 mg IM STAT PRN; Protocol PRN Reason: Hypoglycemia Protocol Glucagon (Glucagen Diagnostic Kit) 0 mg IM STAT PRN; Protocol PRN Reason: Hypoglycemia Protocol Lactated Ringer's (Lactated Ringer's) 1,000 mls @ 125 mls/hr IV .Q8H COUNTS INCLUDE 234 BEDS AT THE [facility] Last Admin: 04/05/18 09:01 Dose: 125 mls/hr Insulin Detemir (Levemir) 20 units SC HS GET Insulin Human Regular (Humulin R) 0 units SC ACHS COUNTS INCLUDE 234 BEDS AT THE [facility]; Protocol Last Admin: 04/05/18 06:27 Dose: 6 units Losartan Potassium (Cozaar) 50 mg PO DAILY COUNTS INCLUDE 234 BEDS AT THE [facility] Morphine Sulfate (Morphine) 2 mg IVP Q4 PRN PRN Reason: Pain, moderate (4-7) Last Admin: 04/05/18 01:10 Dose: 2 mg Pantoprazole Sodium (Protonix Inj) 40 mg IVP DAILY COUNTS INCLUDE 234 BEDS AT THE [facility] Last Admin: 04/05/18 08:41 Dose: 40 mg - Labs Labs: 04/05/18 05:50 04/05/18 05:50 - Constitutional Appears: Non-toxic, No Acute Distress - Head Exam Head Exam: ATRAUMATIC, NORMAL INSPECTION, NORMOCEPHALIC - Eye Exam Eye Exam: Normal appearance - Neck Exam Neck Exam: Normal Inspection - Respiratory Exam Respiratory Exam: Clear to Ausculation Bilateral, NORMAL BREATHING PATTERN - Cardiovascular Exam Cardiovascular Exam: REGULAR RHYTHM, +S1, +S2 - GI/Abdominal Exam GI & Abdominal Exam: Soft, Tenderness (mildly diffuse), Normal Bowel Sounds - Neurological Exam Neurological Exam: Alert, Awake - Psychiatric Exam Psychiatric exam: Normal Affect, Normal Mood - Skin Skin Exam: Normal Color, Warm Assessment and Plan - Assessment and Plan (Free Text) Assessment: 53 yo male with hx of DM 2 uncontrolled., HTN and Hyperlipidemia admitted for pancreatitis. plan GI following advance diet as tolerated monitor BMs ISS due to change of diet, hold long acting insulin
--- NOTE | 2018-04-05 17:23 | CT ---
Date of service: 04/05/2018 PROCEDURE: CT Abdomen and Pelvis without intravenous contrast HISTORY: pancreatitis COMPARISON: CT scan of the abdomen pelvis dated 04/03/2018. TECHNIQUE: Contiguous images were obtained from the domes of the diaphragms to the upper thighs without the administration of intravenous contrast. Oral contrast was not administered. Radiation dose: Total exam DLP = 675.77 mGy-cm. This CT exam was performed using one or more of the following dose reduction techniques: Automated exposure control, adjustment of the mA and/or kV according to patient size, and/or use of iterative reconstruction technique. FINDINGS: LOWER THORAX: Right middle lobe scarring. Heart size normal. Coronary arterial and valvular calcifications. LIVER: Hepatomegaly. No gross lesion or ductal dilatation. GALLBLADDER AND BILE DUCTS: Unremarkable. PANCREAS: Edematous pancreas with peripancreatic stranding. SPLEEN: Unremarkable. ADRENALS: Unremarkable. No mass. KIDNEYS AND URETERS: Unremarkable. No hydronephrosis. No solid mass. VASCULATURE: Diffuse aortic and arterial atherosclerotic calcifications. Assessment for mural plaque is limited in the absence of intravenous contrast. BOWEL: Unremarkable. No obstruction. No gross mural thickening. APPENDIX: Unremarkable. Normal appendix. PERITONEUM: Unremarkable. No free fluid. No free air. LYMPH NODES: Unremarkable. No enlarged lymph nodes. BLADDER: Unremarkable. REPRODUCTIVE: Unremarkable. BONES: No acute fracture. OTHER FINDINGS: None. IMPRESSION: No significant interval change. Pancreatitis. No obvious evidence of hemorrhage, necrosis or adjacent peripancreatic collection. Additional stable findings as above.
[2018-04-05] MEDS ORDERED: Insulin Detemir 100 Units/ml Inj SC SCH (22:00)
[2018-04-06] MEDS: Lactated Ringer's 1,000 ML IV SCH (06:38)
[2018-04-06] MEDS ORDERED: Insulin Regular 100 units/ml SC SCH (07:30)
[2018-04-06 08:45] VITALS: BP 126/89; RESP 20; TEMP 98.4; O2SAT 96
--- NOTE | 2018-04-06 09:16 | CON ---
DATE: 04/05/2018 REFERRING PHYSICIAN: sIidoro Caro MD REASON FOR CONSULTATION: . HISTORY OF PRESENT ILLNESS: This is a 53-year-old man with abdominal discomfort and has had over the past diabetes and hyperlipidemia. Drinks daily accompanied with history of pancreatitis. improved at this point. Nausea and vomiting also improved. Currently lying in bed comfortable, in no apparent distress. PAST MEDICAL HISTORY: As above. PAST SURGICAL HISTORY: As above. MEDICATIONS: Have been reviewed. REVIEW OF SYSTEMS: All other systems have been reviewed and negative apart from the HPI. PHYSICAL EXAMINATION: VITAL SIGNS: Here in the hospital, grossly unremarkable. GENERAL: Middle-aged male, lying in bed comfortably, in no apparent distress. HEENT: Normocephalic and atraumatic. Eyes pupils are equally reactive to light bilaterally. There is some conjunctival icterus. No pallor. NECK: Supple. Normal range of motion. No lymphadenopathy appreciated. LUNGS: Coarse breath sounds bilaterally. HEART: S1 and S2. Regular rate and rhythm. No murmurs appreciated. ABDOMEN: Soft. Nontender. Bowel sounds present. Discomfort in the right upper quadrant. No rebound. No guarding. RECTAL: Deferred. EXTREMITIES: Pulses felt bilaterally. SKIN: Warm, dry, and intact. NEUROLOGIC: A and O x3. LABORATORY DATA: Labs and radiology have been reviewed. WBC is 5.1, hemoglobin 12.1, hematocrit 36.4, platelet count 411 and now 326. Alkaline phosphatase 171. LFTs are grossly unremarkable. Lipase is minimal elevated. CAT scan of the abdomen and pelvis shows acute pancreatitis. ASSESSMENT AND PLAN: This is a 53-year-old man with pancreatitis and at bedside as tolerated and is doing well. Discharge planning with abstinence from alcohol. Thank you for this consult. Marco A Lucia MD/ PhD cc: Isidoro Caro MD
[2018-04-06] MEDS: Insulin Regular 100 units/ml SC SCH ×2 (09:29→12:03)
[2018-04-06 09:35] VITALS: PULSE 84
--- NOTE | 2018-04-06 09:56 | CP.PCM.PN ---
Subjective - Date & Time of Evaluation Date of Evaluation: 04/06/18 Time of Evaluation: 09:56 - Subjective Subjective: no overnight events Objective - Vital Signs/Intake and Output Vital Signs (last 24 hours): Temp Pulse Resp BP Pulse Ox 98.4 F 84 20 126/89 96 04/06/18 08:44 04/06/18 09:28 04/06/18 08:44 04/06/18 09:28 04/06/18 08:44 - Medications Medications: Current Medications Atorvastatin Calcium (Lipitor) 20 mg PO DAILY [facility] Last Admin: 04/06/18 09:31 Dose: 20 mg Dextrose (Dextrose 50% Inj) 0 ml IV STAT PRN; Protocol PRN Reason: Hypoglycemia Protocol Dextrose (Glutose 15) 0 gm PO ONCE PRN; Protocol PRN Reason: Hypoglycemia Protocol Dextrose (Dextrose 50% Inj) 0 ml IV STAT PRN; Protocol PRN Reason: Hypoglycemia Protocol Dextrose (Glutose 15) 0 gm PO ONCE PRN; Protocol PRN Reason: Hypoglycemia Protocol Glucagon (Glucagen Diagnostic Kit) 0 mg IM STAT PRN; Protocol PRN Reason: Hypoglycemia Protocol Glucagon (Glucagen Diagnostic Kit) 0 mg IM STAT PRN; Protocol PRN Reason: Hypoglycemia Protocol Lactated Ringer's (Lactated Ringer's) 1,000 mls @ 125 mls/hr IV .Q8H [facility] Last Admin: 04/06/18 06:38 Dose: 125 mls/hr Insulin Detemir (Levemir) 20 units SC HS [facility] Last Admin: 04/05/18 21:41 Dose: 20 u Insulin Human Regular (Humulin R) 0 units SC ACHS GET; Protocol Last Admin: 04/06/18 09:29 Dose: 2 units Insulin Human Regular (Humulin R) 0 units SC ACB [facility] Last Admin: 04/06/18 09:35 Dose: Not Given Losartan Potassium (Cozaar) 50 mg PO DAILY [facility] Last Admin: 04/06/18 09:28 Dose: 50 mg Pantoprazole Sodium (Protonix Inj) 40 mg IVP DAILY [facility] Last Admin: 04/06/18 09:31 Dose: 40 mg - Labs Labs: 04/05/18 05:50 04/05/18 05:50 - Head Exam Head Exam: NORMOCEPHALIC - Neck Exam Neck Exam: Normal Inspection - Respiratory Exam Respiratory Exam: Clear to Ausculation Bilateral, NORMAL BREATHING PATTERN - Cardiovascular Exam Cardiovascular Exam: REGULAR RHYTHM - GI/Abdominal Exam GI & Abdominal Exam: Soft, Normal Bowel Sounds Assessment and Plan - Assessment and Plan (Free Text) Assessment: 53 yo male with hyperglcemia nausea improved tolerating diet control sugars dc planning
[2018-04-06] MEDS ORDERED: Simethicone 80 mg Chewtab PO ONE (12:00)
== END 2018-04-06 14:04 | disposition home or self-care (01) ==
LOC: SUPCPDRO 12:17 → H.ER 12:17 → H.ERHOLD 14:13 → H.MEDSURG1 04-05 06:37
PROVIDERS: ADMIT Family Medicine; ATTEND Family Medicine
DX: K85.90 Acute pancreatitis without necrosis or infection, unspecified (principal); Z79.4 Long term (current) use of insulin; F17.210 Nicotine dependence, cigarettes, uncomplicated; Z89.511 Acquired absence of right leg below knee; Z79.899 Other long term (current) drug therapy; E11.9 Type 2 diabetes mellitus without complications; E66.9 Obesity, unspecified; Z68.31 Body mass index [BMI] 31.0-31.9, adult; E78.5 Hyperlipidemia, unspecified; I10 Essential (primary) hypertension; J45.909 Unspecified asthma, uncomplicated
CPT/HCPCS: 74176; 80053; 82948; 83690; 85025; 85027; 96372; 96374; 99285; C9113; G0378; J2270; J2405; J7030; J7120